=== PATIENT | male | born 1955 | race Caucasian/White ===

== ENCOUNTER 2019-01-31 08:54 | Emergency (ER) | payer BC, SELFPAY ==
[2019-01-31 09:26] VITALS: BP 105/75; PULSE 74; RESP 18; TEMP 36.8; O2SAT 99; BMI 31.1
--- NOTE | 2019-01-31 09:34 | PC.NURSE ---
pt has good pulses in right radial. middle finger is swollen. decreased ability to bend the finger.
--- NOTE | 2019-01-31 09:47 | DI.RAD.S_ITS ---
PROCEDURE: XR FINGER LT MIN 2V INDICATIONS: pain/swelling L middle finger TECHNIQUE: AP hand, 2 views of the third finger(s) acquired. COMPARISON: None. FINDINGS: Bones: No fractures or dislocations. No suspicious bony lesions. Soft tissues: No suspicious soft tissue calcifications. IMPRESSION: No acute fracture. No osseous lesion. If clinical suspicion and/or symptoms persist, further assessment with repeat plainfilms, or advanced imaging (e.g., CT, MRI, or bone scan) may be helpful for further assessment. Dictated by: Bibiana Simon M.D. on 01/31/2019 at 10:11 Approved by: Bibiana Simon M.D. on 01/31/2019 at 10:12
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
[2019-01-31 10:42] LABS: C-Reactive Protein Quant 0.6 mg/dL (<1.0); Uric Acid 5.9 mg/dL (3.5-8.5)
[2019-01-31 10:44] LABS: Erythrocyte Sedimentation Rate 5 MM/HR (0-15)
[2019-01-31 11:37] VITALS: BP 116/84; PULSE 76; RESP 18; TEMP 36.7; O2SAT 99
== END 2019-01-31 11:33 | disposition home or self-care (01) ==
PROVIDERS: Emergency Provider Emergency Medicine; PCP Family Medicine
DX: M79.89 Other specified soft tissue disorders (principal); W54.0XXA Bitten by dog, initial encounter
CPT/HCPCS: 36415; 73140; 84550; 85651; 86140; 99282; 99283

== ENCOUNTER 2019-02-06 12:44 | Emergency (ER) | payer BC, SELFPAY ==
[2019-02-06 12:45] VITALS: BP 131/76; PULSE 92; RESP 19; TEMP 36.3; O2SAT 98
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
--- NOTE | 2019-02-06 13:34 | PC.NURSE ---
swelling noted to middle finger on left hand.
== END 2019-02-06 13:39 | disposition home or self-care (01) ==
PROVIDERS: Emergency Provider Emergency Medicine; PCP Family Medicine
DX: M77.9 Enthesopathy, unspecified (principal)
CPT/HCPCS: 99283

== ENCOUNTER → 2019-04-29 11:43 | Outpatient (CLI) | payer BC, SELFPAY ==
[2019-04-29 12:12] LABS: Add Manual Diff / Slide Review NO; Basophils Absolute Auto 100 /uL (0-100); Basophils Percent Auto 0.9 % (0-2); Eosinophils Absolute Auto 300 /uL (0-450); Eosinophils Percent Auto 3.8 % (2-4); Hematocrit 42.7 % (41-53); Hemoglobin 14.6 g/dL (13.5-17.5); Lymphocytes Absolute Auto 2400 /uL (1100-4500); Lymphocytes Percent Auto 26.9 % (25-40); Mean Corpuscular HGB Conc 34.2 % (30-36); Mean Corpuscular Hemoglobin 32.6 PG (26-34); Mean Corpuscular Volume 95.2 fL (80-100); Monocytes Absolute Auto 700 /uL (0-900); Monocytes Percent Auto 7.7 % (3-14); Neutrophils Absolute Auto 5400 /uL (1500-7000); Neutrophils Percent Auto 60.7 % (50-75); Platelet Count 255 X10^3/uL (150-400); Red Blood Cell Count 4.48 X10^6/uL (4.5-5.9); Red Cell Distribution Width 13.2 % (11.6-14.8)
[2019-04-29 12:48] LABS: Alanine Aminotransferase 36 IU/L (21-72); Albumin 4.5 g/dL (3.5-5.0); Albumin Globulin Ratio 1.7 (1.0-2.8); Alkaline Phosphatase 121 U/L (38-126); Aspartate Aminotransferase 30 IU/L (17-59); BUN Creatinine Ratio 26.9 (6-22); Bilirubin Total 0.6 mg/dL (0.2-1.3); Blood Urea Nitrogen 35 mg/dL (9-20); Calcium 9.7 mg/dL (8.4-10.2); Carbon Dioxide 25 mmol/L (22-32); Chloride 101 mmol/L (98-107); Estimated Glomerular Filt Rate 55.4 mL/min (>60); Globulin 2.6 g/dL (1.7-4.1); Glucose 82 mg/dL (80-110); HEMOLYSIS < 15 (0-50); Potassium 4.8 mmol/L (3.4-5.1); Sodium 136 mmol/L (137-145); Total Protein 7.1 g/dL (6.3-8.2)
[2019-04-29 14:25] LABS: Creatinine Urine Random 126.4 mg/dL
[2019-04-29 14:30] LABS: Microalbumi Creatinin Ratio Ur 22.1 ug/mg CR (<30); Microalbumin Urine Random 2.8 mg/dL (0-1.6)
== END ==
PROVIDERS: PCP Family Medicine; Visit Provider Internal Medicine Hematology & Oncology
DX: Z86.718 Personal history of other venous thrombosis and embolism (principal); I10 Essential (primary) hypertension
CPT/HCPCS: 36415; 80053; 82043; 82570; 85025

== ENCOUNTER → 2019-04-30 09:12 | Oncology outpatient (ONC) | payer BC, SELFPAY ==
--- NOTE | 2019-04-15 13:44 | ONC.SCHED ---
[place] [facility] [place] to reschedule his apt. that is on April 30 which is a Friday. I'll send an email out to the team.
--- NOTE | 2019-04-29 16:53 | ONC.PN ---
PN -Subjective Interval history: Diagnosis: Recurrent DVT Interval history: The patient is a 64-year-old man who returns today for follow-up. He has a history of 3 episodes of previous thrombosis. The 1st occurred in 2013 and was treated with Lovenox followed by warfarin for about 6 months. In 2015, he had unprovoked recurrence. He was treated with Pradaxa. In 2017, he had a recurrence again while on anticoagulation and was switched to Eliquis. Since then, he has been doing well on the Eliquis. He has not had any bleeding complications. He denies any epistaxis or gingival bleeding. No blood in the urine or stool. He has not noted any unusual bruising. He denies any shortness of breath cough for chest pain. He has not had any pain or swelling in the legs. He has been diligent about taking the medication and denies missing doses. He denies any other changes in his health and is otherwise feeling well. Home Medications and Allergies Home Medications Medication Instructions Recorded Confirmed Type amlodipine 5 mg tablet 5 mg PO QDAY #90 tab 03/22/19 Rx apixaban 5 mg tablet 5 mg PO BID #180 tab 03/22/19 Rx atorvastatin 20 mg tablet 20 mg PO HS #90 tab 03/22/19 Rx hydrochlorothiazide 25 mg tablet 25 mg PO QDAY #90 tab 03/22/19 Rx lisinopril 40 mg tablet 40 mg PO QDAY #90 tab 03/22/19 Rx Allergies Allergy/AdvReac Type Severity Reaction Status Date / Time codeine [CODEINE] Allergy Severe PASSED OUT Unverified 03/22/19 09:25 oxycodone [OXYCODONE] Allergy Unknown Unverified 03/22/19 09:25 Exam - Constitutional positive no acute distress, positive average body habitus - Routine HEENT Exam Head: Present: normocephalic, atraumatic Eye: Present: EOMI, PERRL. Absent: conjunctival icterus, scleral injection ENT: Present: mucous membranes moist, oropharynx clear - Routine Neck Exam Present: supple. Absent: lymphadenopathy, thyromegaly - Routine Respiratory Exam Present: Clear to auscultation bilaterally. Absent: rales, wheezes - Routine Cardiovascular Exam Present: RRR, S1, S2. Absent: murmur - Routine Abdominal Exam Present: soft, normoactive bowel sounds. Absent: tenderness, organomegaly, mass - Routine Extremities Exam Absent: cyanosis, clubbing, edema - Routine Skin Exam Present: intact. Absent: petechiae, rash - Routine Neurological Exam Present: alert, oriented X3 - Routine Psychiatric Exam Present: normal affect, normal thought process Assessment and Plan (1) History of deep venous thrombosis Onset Date: 10/02/15 Current visit: No Status: Chronic 64-year-old man with a history of recurrent thrombosis despite anticoagulation. He is doing well on his current regimen with Eliquis and will continue. I think he should be treated indefinitely. I have not scheduled a follow-up appointment for him but would be happy to see him on an as needed basis if any new questions or problems arise.
== END ==
PROVIDERS: PCP Family Medicine; Visit Provider Internal Medicine Hematology & Oncology
DX: Z09 Encounter for follow-up examination after completed treatment for conditions other than malignant neoplasm (principal); Z86.718 Personal history of other venous thrombosis and embolism; Z79.01 Long term (current) use of anticoagulants
CPT/HCPCS: 36415; 80053; 82043; 82570; 85025; 99214

== ENCOUNTER → 2020-05-04 08:59 | Outpatient (CLI) | payer BC, SELFPAY ==
--- NOTE | 2020-05-04 | DI.RAD.S_ITS ---
PROCEDURE: XR T AND L SPINE 4 TO 5 VIEWS INDICATIONS: Scoliosis TECHNIQUE: 2 views acquired of the thoracolumbar spine. COMPARISON: [facility], , CHEST 2 VIEW, 02/16/2014, 9:35. FINDINGS: Bones: Mild anterior wedging noted within multiple lower thoracic vertebral bodies which appear similar to prior examination dated 02/16/14. Multilevel thoracolumbar disc degeneration redemonstrated, most notably in severe at L5-S1 level were there is grade 2 spondylolisthesis. Moderate dextrocurvature centered at the thoracolumbar level with maximal Hardy angle of 31?. Visualized inferior ribs appear intact. No suspicious bony lesions. Bones are osteopenic. Soft tissues: No suspicious soft tissue calcifications. IMPRESSION: 1. Moderate dextroscoliosis centered at the thoracolumbar level with maximal Hardy angle 31?. 2. Mild anterior wedging noted within multiple lower thoracic vertebral bodies appearing unchanged from prior chest radiograph dated 02/16/14. 3. Multilevel thoracolumbar spondylosis, most notably with severe disc degeneration at the L5-S1 level. Dictated by: Noe Workman [facility] Interpreted: Raya Casillas MD on 05/04/2020 at 10:04 Approved by: Raya Casillas MD, PhD on 05/04/2020 at 13:39
[2020-05-04 10:32] LABS: Add Manual Diff / Slide Review NO; Basophils Absolute Auto 0 /uL (0-100); Basophils Percent Auto 0.4 % (0-2); Eosinophils Absolute Auto 300 /uL (0-450); Eosinophils Percent Auto 5.3 % (2-4); Hematocrit 42.3 % (41-53); Hemoglobin 14.4 g/dL (13.5-17.5); Lymphocytes Absolute Auto 1800 /uL (1100-4500); Mean Corpuscular HGB Conc 34.1 % (30-36); Mean Corpuscular Hemoglobin 33.1 PG (26-34); Mean Corpuscular Volume 97.3 fL (80-100); Monocytes Absolute Auto 600 /uL (0-900); Monocytes Percent Auto 9.2 % (3-14); Neutrophils Absolute Auto 3700 /uL (1500-7000); Neutrophils Percent Auto 57.1 % (50-75); Platelet Count 242 X10^3/uL (150-400); Red Blood Cell Count 4.35 X10^6/uL (4.5-5.9); Red Cell Distribution Width 13.2 % (11.6-14.8); White Blood Cell Count 6.4 X10^3/uL (4.5-11.0)
[2020-05-04 10:38] LABS: Alanine Aminotransferase 29 IU/L (<50); Albumin 4.3 g/dL (3.5-5.0); Albumin Globulin Ratio 1.6 (1.0-2.8); Alkaline Phosphatase 85 U/L (38-126); Aspartate Aminotransferase 32 IU/L (17-59); BUN Creatinine Ratio 21.5 (6-22); Bilirubin Total 0.6 mg/dL (0.2-1.3); Blood Urea Nitrogen 26 mg/dL (9-20); Calcium 9.5 mg/dL (8.4-10.2); Carbon Dioxide 28 mmol/L (22-32); Chloride 103 mmol/L (98-107); Cholesterol 146 mg/dL (140-199); Globulin 2.7 g/dL (1.7-4.1); Glucose 89 mg/dL (80-110); HDL Cholesterol 47 mg/dL (40-60); HEMOLYSIS < 15 (0-50); LDL Cholesterol Calculated 77 mg/dL (<100); Potassium 5.1 mmol/L (3.4-5.1); Sodium 138 mmol/L (137-145); Triglycerides 112 mg/dL (35-150)
[2020-05-04 11:28] LABS: TSH w/ Reflex to FT4 1.42 uIU/mL (0.47-4.68)
[2020-05-05 06:36] LABS: PSA Ultrasensitive 0.858 ng/mL (0.000-4.000)
== END ==
PROVIDERS: PCP Internal Medicine; Referring Provider Internal Medicine; Visit Provider Internal Medicine
DX: Z12.5 Encounter for screening for malignant neoplasm of prostate (principal); E78.5 Hyperlipidemia, unspecified; I10 Essential (primary) hypertension; I82.401 Acute embolism and thrombosis of unspecified deep veins of right lower extremity; Z79.01 Long term (current) use of anticoagulants; M41.9 Scoliosis, unspecified
CPT/HCPCS: 36415; 72083; 80053; 80061; 84153; 84443; 85025

== ENCOUNTER 2020-05-16 16:20 | Emergency (ER) | payer OTHER, BC, SELFPAY ==
[2020-05-16 16:24] VITALS: BP 124/75; PULSE 88; RESP 20; TEMP 37.2; O2SAT 96; BMI 31.1
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
[2020-05-16 17:58] VITALS: BP 124/76; PULSE 65; O2SAT 99
== END 2020-05-16 18:06 | disposition home or self-care (01) ==
PROVIDERS: Emergency Provider Nurse Practitioner Family; PCP Internal Medicine
DX: S13.4XXA Sprain of ligaments of cervical spine, initial encounter (principal); M79.641 Pain in right hand; S60.511A Abrasion of right hand, initial encounter; V89.2XXA Person injured in unspecified motor-vehicle accident, traffic, initial encounter; Z79.01 Long term (current) use of anticoagulants
CPT/HCPCS: 70450; 71045; 72125; 73130; 99284

== ENCOUNTER → 2020-06-08 11:38 | Outpatient (CLI) | payer BC, SELFPAY ==
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
== END ==
PROVIDERS: PCP Internal Medicine; Referring Provider Internal Medicine; Visit Provider Internal Medicine
DX: S13.4XXA Sprain of ligaments of cervical spine, initial encounter (principal); I65.23 Occlusion and stenosis of bilateral carotid arteries; I65.03 Occlusion and stenosis of bilateral vertebral arteries; M43.12 Spondylolisthesis, cervical region; M47.812 Spondylosis without myelopathy or radiculopathy, cervical region; M48.02 Spinal stenosis, cervical region
CPT/HCPCS: 70548; 70551; 72141

== ENCOUNTER → 2021-01-25 07:33 | Outpatient (CLI) | payer BC, OTHER, SELFPAY ==
[2021-01-25] MEDS: COVID-19 VACC, Ad26(JANSSEN)/PF 0.5 ML IM (07:47)
== END ==
PROVIDERS: PCP Family Medicine; Visit Provider Internal Medicine
DX: Z23 Encounter for immunization (principal)
CPT/HCPCS: 0031A; 91303

== ENCOUNTER → 2021-02-13 08:09 | Outpatient (CLI) | payer BC, OTHER, SELFPAY ==
[2021-02-13 09:31] LABS: Alanine Aminotransferase 34 IU/L (<50); Albumin 4.2 g/dL (3.5-5.0); Albumin Globulin Ratio 1.8 (1.0-2.8); Alkaline Phosphatase 94 U/L (38-126); Aspartate Aminotransferase 34 IU/L (17-59); BUN Creatinine Ratio 22.8 (6-22); Bilirubin Total 0.4 mg/dL (0.2-1.3); Blood Urea Nitrogen 29 mg/dL (9-20); Calcium 9.3 mg/dL (8.4-10.2); Carbon Dioxide 28 mmol/L (22-32); Chloride 103 mmol/L (98-107); Cholesterol 156 mg/dL (140-199); Estimated Glomerular Filt Rate 56.6 mL/min (>60); Globulin 2.3 g/dL (1.7-4.1); Glucose 97 mg/dL (80-110); HDL Cholesterol 57 mg/dL (40-60); HEMOLYSIS < 15 (0-50); LDL Cholesterol Calculated 80 mg/dL (<100); Potassium 4.2 mmol/L (3.4-5.1); Sodium 138 mmol/L (137-145); Total Protein 6.5 g/dL (6.3-8.2); Triglycerides 96 mg/dL (35-150)
== END ==
PROVIDERS: PCP Family Medicine; Referring Provider Family Medicine; Visit Provider Family Medicine
DX: E78.2 Mixed hyperlipidemia (principal); I10 Essential (primary) hypertension
CPT/HCPCS: 36415; 80053; 80061

== ENCOUNTER → 2021-03-29 09:10 | Outpatient (CLI) | payer BC, OTHER, SELFPAY ==
[2021-03-29 09:45] LABS: COVID19 -Nasal RAPID Negative (Negative)
== END ==
PROVIDERS: PCP Family Medicine; Visit Provider Specialist
DX: Z20.822 Contact with and (suspected) exposure to COVID-19 (principal)
CPT/HCPCS: 87635; C9803

== ENCOUNTER → 2021-05-24 08:53 | Outpatient (CLI) | payer BC, OTHER, SELFPAY ==
[2021-05-24 10:45] LABS: COVID19 -Nasal RAPID Negative (Negative)
== END ==
PROVIDERS: PCP Family Medicine; Referring Provider Specialist; Visit Provider Specialist
DX: Z20.822 Contact with and (suspected) exposure to COVID-19 (principal)
CPT/HCPCS: 87635; C9803

== ENCOUNTER 2021-05-25 09:41 | Day surgery (SDC) | payer BC, OTHER, SELFPAY ==
--- NOTE | 2021-05-25 | PATH_ITS ---
[facility] Accession Number: [id number] . 01 Material submitted: . body - POLYP @50CM . 02 Diagnosis: Polyp at 50 cm: Portions of tubular adenoma x 3. Superficial portions of colorectal mucosa x 3 with hyperplastic mucosal features. Superficial portions of colorectal mucosa x 2 with no significant histomorphologic abnormality. MRV 05/30/2021 1055 Local . 02 Electronically signed: . Kenyetta Felipe MD, Pathologist NPI- [id number] . 01 Gross description: . POLYP @50CM: Received in formalin are multiple fragment(s) of marquez, soft tissue measuring 0.6 x 0.6 x 0.2 cm in aggregate submitted entirely in 1 cassette(s) /MADELINE 05/26/2021 0537 Local . 02 Pathologist provided ICD-10: Z12.11, K63.5 . 02 CPT . 211457 Performed at: 01 [facility] [address] [facility], [place], [place] [id number] MD Chad Zuñiga MD Phone: [phone] Performed at: 02 [facility] [address] [place], [place] [id number] MD Danyelle Mejia MD Phone: [phone]
[2021-05-25 10:37] VITALS: BMI 32.5
[2021-05-25 10:41] VITALS: BP 128/80; PULSE 81; RESP 12; TEMP 36.6; O2SAT 97
[2021-05-25] MEDS: LACTATED RINGERS 1,000 ML 200 ML IV (10:47)
--- NOTE | 2021-05-25 11:02 | PM.HP.1 ---
History of Present Illness History of Present Illness Date Patient Seen: 05/25/21 Time Patient Seen: 11:03 Chief complaint: SDC Narrative: Patient here for screening colonoscopy. Last exam was about 5 years ago. He had polyps removed at that time. Patient History Medical History Cephalgia Chicken pox Chronic back pain Erectile dysfunction Essential hypertension (10/02/15) Fractures Herpes zoster ophthalmicus of left eye Heterozygous factor V Leiden mutation (10/02/15) History of deep venous thrombosis (10/02/15) Measles Mixed hyperlipidemia (10/02/15) Mumps Renal insufficiency Surgical History Anesthesia Broken leg (~01/2000) No pertinent past surgical history Family & Social History Family History Father History of heart disease Mother Cancer Social History: household members spouse Tobacco & Substance use: Smoking Status Former smoker alcohol intake current alcohol intake frequency a few times a week Substance Use Type does not use Meds Home Medications and Allergies Home Medications Medication Instructions Recorded Confirmed Type aspirin 81 mg tablet,delayed 81 mg PO DAILY 01/22/21 05/25/21 History release tadalafil 20 mg tablet 20 mg PO DAILY tab 01/22/21 05/25/21 History sodium,potassium,mag sulfates 17.5 177 ml PO DAILY #354 ml 02/15/21 05/22/21 Rx gram-3.13 gram-1.6 gram oral soln apixaban 5 mg tablet (Eliquis) 5 mg PO BID #180 tab 05/09/21 05/25/21 Rx atorvastatin 20 mg tablet 20 mg PO BEDTIME #90 tab 05/23/21 05/25/21 Rx lisinopril 20 mg tablet 20 mg PO DAILY #30 tab 05/23/21 05/25/21 Rx amlodipine 5 mg tablet 5 mg PO DAILY 05/25/21 05/25/21 History hydrochlorothiazide 25 mg tablet 25 mg PO DAILY 05/25/21 05/25/21 History Allergies Allergy/AdvReac Type Severity Reaction Status Date / Time codeine [CODEINE] Allergy Severe PASSED OUT Verified 05/25/21 10:21 oxycodone [OXYCODONE] Allergy Intermediate n/v/d Verified 05/25/21 10:21 Review of Systems Review of Systems Narrative: Has a history of DVTs. Has factor 5 Leiden deficiency. Has hypertension and elevated cholesterol. Otherwise fairly healthy. He does have enlarged prostate. ROS: Yes All systems reviewed with the patient and are negative except as otherwise documented Exam Vital Signs (past 8 hours): - 05/25/21 10:41 Temperature 97.8 F Pulse Rate 81 Respiratory Rate 12 Blood Pressure 128/80 Pulse Oximetry 97 Oxygen Delivery Method Room Air Narrative Exam Narrative: Pleasant cooperative patient no apparent distress. Lungs are clear to auscultation. No rales or rhonchi. Heart regular rate and rhythm no murmur gallop. Abdomen is soft nontender without mass. No obvious hernias. Patient is alert and oriented x3. Assessment & Plan Assessment & Plan narrative: The patient for a screening colonoscopy. I have discussed the procedure with them. Risks of bleeding, perforation which would necessitate major operation, failure to find remove all lesions, the potential tattoo were all discussed. All questions were answered. They wished to proceed.
--- NOTE | 2021-05-25 11:04 | PM.PREOP ---
Pre-operative Note COVID-19 COVID-19 status: Negative Result date/Date tested (Pos, Neg/Pending): 05/24/21 Interval Note History & Physical reviewed/Exam performed by Physician: Yes Changes to H&P: No H&P completed within 30 days and has changed as indicated here:: Last Eliquis was Friday. ASA Class (for procedural sedation): III
[2021-05-25] MEDS: ONDANSETRON 4 MG/2 ML INJ IV (11:08)
[2021-05-25 11:28] VITALS: BP 114/80; PULSE 78; RESP 16; TEMP 36.8; O2SAT 96
--- NOTE | 2021-05-25 11:28 | PM.OP.ENDO ---
Operative Date/Time/Diagnoses Date of procedure: 05/25/21 Time of procedure: 11:28 Pre-op diagnosis: Screening for colon cancer. Personal history of polyps. Last exam 5 years ago. Post-op diagnosis: same Procedure & Clinicians Study performed: Colonoscopy with cold biopsy Same procedure as scheduled: Yes Indications: Screening Surgeon: Luis Perera Procedure Notes SCOAP/Timeout: Performed Procedure in detail: The patient was placed in the left lateral decubitus position and underwent IV sedation directed by the surgeon consisting of fentanyl and Versed. Digital exam was unremarkable. His prostate is flat.. The scope was inserted and advanced through the rectum into the sigmoid, descending, transverse, and ascending colon. Patient had diverticulosis throughout the colon.. The cecum was reached identified by the ileocecal valve and the appendiceal opening. There were diverticuli within the cecum as well. . The scope was gradually brought out. One possible Polyp was found at 50 cm from the anal verge. This was located between 2 diverticuli. It appeared to be completely removed with biopsy forceps. The scope ultimately was retroflexed in the rectum. The appearance was normal. The scope was removed and the patient tolerated the procedure well. The prep was good. Scope withdrawal time: 6 minutes(7-1/2 total) Sedation minutes: 17 Findings: diverticulosis (Throughout the colon) and polyp Post-procedure Recommendations: Colonscopy in 5 years (Due to presence/history of polyps.) and High fiber diet (Eat lots of fruit and vegetables) Follow up: as needed Disposition: PACU
[2021-05-25] MEDS: fentaNYL 250 MCG/5 ML INJ IV (11:31)
[2021-05-25] MEDS: MIDAZOLAM 5 MG/5 ML VIAL IV (11:31)
[2021-05-25 11:33] VITALS: BP 112/74; PULSE 74; RESP 17; O2SAT 95
[2021-05-25 11:38] VITALS: BP 114/70; PULSE 70; RESP 16; O2SAT 95
[2021-05-25 11:43] VITALS: BP 103/60; PULSE 74; RESP 14; TEMP 36.9; O2SAT 95
[2021-05-25 11:51] VITALS: BP 111/64; PULSE 76; RESP 16; TEMP 36.9; O2SAT 95
== END 2021-05-25 12:08 | disposition home or self-care (01) ==
PROVIDERS: PCP Family Medicine; Referring Provider Specialist; Visit Provider Specialist
PROC: 0DJD8ZZ Inspection of Lower Intestinal Tract, Via Natural or Artificial Opening Endoscopic (ICD-10-PCS; CPT 45378; principal; 2021-05-25 10:45)
DX: Z12.11 Encounter for screening for malignant neoplasm of colon (principal); Z86.010 Personal history of colon polyps; I10 Essential (primary) hypertension; E78.2 Mixed hyperlipidemia; D12.6 Benign neoplasm of colon, unspecified
CPT/HCPCS: 45380; 99152; J2250; J2405; J3010

== ENCOUNTER → 2021-08-24 17:31 | Outpatient (CLI) | payer BC, OTHER, SELFPAY ==
--- NOTE | 2021-08-24 17:32 | DI.MRI.S_ITS ---
PROCEDURE: MR CERVICAL SPINE WO CON INDICATIONS: Chronic Neck pain TECHNIQUE: Noncontrast sagittal T1 spin echo and T2 fast spin echo, sagittal STIR, foraminal oblique sagittal T2 fast spin echo, and axial gradient echo or T2 fast spin echo through the cervical spine. COMPARISON: [facility], MR, MR CERVICAL SPINE WO CON, 06/08/2020, 12:17. FINDINGS: Image quality: Artifact is present within multiple portions of the exam, limiting areas of fine detail evaluation. Alignment and Curvature: There is trace retrolisthesis C5 on C6, C6 on C7. Bone Marrow: Marrow demonstrates normal overall signal. Spinal Cord: Visualized spinal cord has normal size and signal. No cerebellar tonsillar herniation. Paraspinous Soft Tissues: No paravertebral masses. Prevertebral soft tissues are normal in thickness. Discs: Moderate to severe desiccation is present throughout the cervical spine most severe at C5-6 and C6-7. C2-C3: Mild disc bulge without spinal stenosis. Mild left foraminal narrowing is unchanged. Uncovertebral hypertrophy is present. C3-C4: Mild disc bulge without spinal stenosis. Moderate to severe left and minimal right foraminal narrowing demonstrating interval progression most notably on the left. Uncovertebral hypertrophy is present. C4-C5: Mild disc bulge with mild spinal stenosis. Severe bilateral foraminal narrowing, left greater than right with uncovertebral hypertrophy. No interval change. C5-C6: Mild disc bulge with mild spinal stenosis. Palz-sg-fkdmsvkr right and moderate to severe left foraminal narrowing with uncovertebral hypertrophy. Slight interval progression. C6-C7: Mild disc bulge with minimal canal narrowing. Severe left and moderate right foraminal narrowing slightly progressive. Uncovertebral hypertrophy is present. C7-T1: No disc bulge or spinal stenosis. Foramina are not well visualized secondary to artifact. There is likely at least mild to moderate left and possibly mild right foraminal narrowing. IMPRESSION: 1. Multilevel degenerative changes with areas of progression as noted above. 2. Multilevel foraminal narrowing most severe at C4-5 and C6-7 secondary to uncovertebral arthropathy. Dictated by: Livia Elizondo M.D. on 08/27/2021 at 9:20 Approved by: Livia Elizondo M.D. on 08/27/2021 at 9:49
== END ==
PROVIDERS: PCP Family Medicine; Referring Provider Family Medicine; Visit Provider Family Medicine
DX: M48.02 Spinal stenosis, cervical region; M54.50 Low back pain, unspecified; M47.812 Spondylosis without myelopathy or radiculopathy, cervical region; M54.2 Cervicalgia; M54.9 Dorsalgia, unspecified; G89.29 Other chronic pain
CPT/HCPCS: 72141

== ENCOUNTER → 2021-08-30 11:48 | Outpatient (CLI) | payer BC, OTHER, SELFPAY | PROVIDERS: PCP Family Medicine; Referring Provider Family Medicine; Visit Provider Family Medicine | DX: M54.9 Dorsalgia, unspecified (principal); G89.29 Other chronic pain; M47.812 Spondylosis without myelopathy or radiculopathy, cervical region; M54.50 Low back pain, unspecified | CPT/HCPCS: 95886; 95911 ==

== ENCOUNTER → 2021-10-15 09:43 | Outpatient (CLI) | payer BC, OTHER, SELFPAY ==
--- NOTE | 2021-10-15 09:45 | DI.RAD.S_ITS ---
PROCEDURE: XR LUMBAR SPINE 2-3V INDICATIONS: Progressive lower back pain, right-sided radiculopathy TECHNIQUE: 3 views of the lumbar spine were acquired. COMPARISON: None. FINDINGS: Bones: 5 [id number] vertebrae are present. Moderate rightward curvature of the upper lumbar spine is present. Loss of normal lumbar lordosis. Grade 1 anterolisthesis of L5 on S1. Bilateral L5-S1 pars interarticularis defects. Multilevel disc space narrowing and endplate osteophyte formation. Facet hypertrophy throughout the mid and lower lumbar spine. No vertebral body compression fractures. No suspicious bony lesions. Soft tissues: Overlying bowel gas pattern is normal. No suspicious soft tissue calcifications. IMPRESSION: 1. Multilevel degenerative disc and facet disease. 2. Grade 1 isthmic spondylolisthesis at L5-S1. 3. No acute fracture. No osseous lesion. If symptoms and/or clinical suspicion for pathology persist, further assessment with repeat, or advanced imaging (e.g., CT, MRI, or bone scan) may be helpful for further assessment. Dictated by: Bibiana Simon M.D. on 10/15/2021 at 11:22 Approved by: Bibiana Simon M.D. on 10/15/2021 at 11:23
== END ==
PROVIDERS: PCP Family Medicine; Referring Provider Family Medicine; Visit Provider Family Medicine
DX: M51.16 Intervertebral disc disorders with radiculopathy, lumbar region (principal); M47.26 Other spondylosis with radiculopathy, lumbar region; M43.17 Spondylolisthesis, lumbosacral region
CPT/HCPCS: 72100

== ENCOUNTER 2022-05-11 16:12 | Emergency (ER) | payer BC, OTHER, SELFPAY ==
[2022-05-11 16:24] VITALS: BP 118/79; PULSE 91; RESP 16; TEMP 36.6; O2SAT 94; BMI 32.5
--- NOTE | 2022-05-11 16:30 | ED.GENADULT ---
HPI - General Adult General Chief complaint: Eye Problems Stated complaint: shingles Time Seen by Provider: 05/11/22 16:23 Source: patient Mode of arrival: Ambulatory Limitations: no limitations History of Present Illness HPI narrative: Patient is a 67-year-old male who is here for evaluation of what he states is a concern for shingles in his right eye. He states that several years ago he was diagnosed with shingles in this emergency department. He followed up with Optometry who put him on ?eyedrops ?he said that there was some scarring around his eye. He has not had any issues since that time. He has never had any surgeries on his eyes before. He does wear corrective lenses. He states that approximately 10 days ago he started to have discomfort on the inside of his right eye that he states feels very similar to when he was diagnosed with shingles. He was not evaluated for this until today. Approximately 7 days ago he was diagnosed with COVID. He has been vaccinated against COVID. He denies any rashes. No problems breathing. No discomfort with his nose. No hearing changes. He does report some discharge from his right eye. Has some irritation but no foreign body sensation. Related Data Home Medications Medication Instructions Recorded Confirmed aspirin 81 mg tablet,delayed 81 mg PO DAILY 01/22/21 10/15/21 release tadalafil 20 mg tablet 20 mg PO DAILY 01/22/21 10/15/21 Previous Rx's Medication Instructions Recorded sodium,potassium,mag sulfates 17.5 177 ml PO DAILY 2 doses #354 mL 02/15/21 gram-3.13 gram-1.6 gram oral soln hydrocodone 5 mg-acetaminophen 325 1 tab PO Q8H PRN pain #20 tabs 10/24/21 mg tablet apixaban 5 mg tablet (Eliquis) 5 mg PO BID #180 tabs 11/13/21 lisinopril 20 mg tablet See Rx Instructions .Route 11/19/21 .COMPLEX #90 tabs amlodipine 5 mg tablet 5 mg PO DAILY #90 tabs 04/22/22 hydrochlorothiazide 25 mg tablet 25 mg PO DAILY #90 tabs 04/22/22 atorvastatin 20 mg tablet 20 mg PO BEDTIME #90 tabs 04/30/22 amoxicillin 875 mg-potassium 1 tab PO Q12H 10 days #20 tabs 05/11/22 clavulanate 125 mg tablet Allergies Allergy/AdvReac Type Severity Reaction Status Date / Time codeine [CODEINE] Allergy Severe PASSED OUT Verified 05/11/22 16:24 oxycodone [OXYCODONE] Allergy Intermediate n/v/d Verified 05/11/22 16:24 Review of Systems Constitutional Constitutional: Denies chills, Denies fever(s) and Denies headache(s) Eyes Eyes: Denies blurry vision, Denies diplopia, Reports eye discharge, Reports irritation and Denies loss of vision ENT Ears, Nose, Mouth, and Throat: Reports system reviewed and no additional complaints, except as documented, Reports as per HPI and Denies headache(s) Respiratory Respiratory: Reports system reviewed and no additional complaints, except as documented Integumentary/Breasts Skin/Breast: Reports system reviewed and no additional complaints, except as documented Neurologic Neurologic: Denies headache(s) and Denies loss of vision Hematologic/Lymphatic On Anticoagulants: No Patient History Medical History Cephalgia Cervical spondylosis Chicken pox Chronic back pain Erectile dysfunction Essential hypertension (10/02/15) Fractures Herpes zoster ophthalmicus of left eye Heterozygous factor V Leiden mutation (10/02/15) History of deep venous thrombosis (10/02/15) Measles Mixed hyperlipidemia (10/02/15) Mumps Renal insufficiency Surgical History Anesthesia Broken leg (~01/2000) No pertinent past surgical history Family History Father History of heart disease Mother Cancer Social History household members: spouse Smoking Status: Former smoker Tobacco: How many years used: 10 quit status: has quit before alcohol intake: current substance use type: does not use Smoking Status: Former smoker alcohol intake frequency: a few times a week Substance Use Type: does not use Exam Initial Vital Signs Initial Vital Signs: Vital Signs Temperature 97.8 F 05/11/22 16:24 Pulse Rate 91 H 05/11/22 16:24 Respiratory Rate 16 05/11/22 16:24 Blood Pressure 118/79 05/11/22 16:24 Pulse Oximetry 94 05/11/22 16:24 Oxygen Delivery Method 05/11/22 16:24 Const General: cooperative, comfortable, well developed and No ill appearing HENCA Head: normal to inspection and normocephalic Ears: hearing grossly normal bilaterally, TM's normal bilaterally and EAC's normal Nose: external nose normal, nares normal, septum normal and No nasal discharge Mouth: oral mucosae normal and moist mucous membranes Eyes Other: Left eye is unremarkable. Right eye does have redness and a small pustule on the upper nasal eyelid with redness that extends down to the lower eyelid medial aspect as well. There are no vesicles noted. Will floor seen the does appear to be some scarring at the 5 and 7 o'clock position of the cornea that does not extend into the visual axis not cross the limbus. But no ulceration. No dendrites. No uptake consistent with abrasion. No foreign body noted. Resp Effort & Inspection: normal respiratory effort Skin Other: No rashes, no vesicles Neuro General: patient alert, patient awake and moves all extremities Extrem General: normal to inspection and capillary refill normal Course Orders Ordered: Discontinued Medications Amoxicillin/Clavulanate Potassium (Amoxicillin/Clav 875/125 Mg) 1 tab PO NOW ONE Stop: 05/11/22 17:22 Last Admin: 05/11/22 17:34 Dose: 1 tab Documented By: BENITO Fluorescein Sodium (Fluorescein 1 Mg Strip) 1 mg EYE-BOTH NOW ONE Stop: 05/11/22 16:31 Last Admin: 05/11/22 16:44 Dose: 1 mg Documented By: MILAGRO Proparacaine HCl (Proparacaine 0.5% Ophth Amanda) 1 drops EYE-RIGHT NOW ONE Stop: 05/11/22 16:31 Last Admin: 05/11/22 16:44 Dose: 1 drop Documented By: NR Vital Signs Vital signs: Vital Signs - 8 hr 05/11/22 16:24 05/11/22 17:38 Temperature 97.8 F Pulse Rate 91 H 83 Respiratory Rate 16 16 Blood Pressure 118/79 119/85 Pulse Oximetry 94 96 Oxygen Delivery Method Room Air Room Air Medical Decision Making MDM Narrative Medical decision making narrative: The patient does not have definitive evidence that there is a zoster infection. There are no vesicles. His visual acuity is noted. He does have redness on the upper and medial aspect of the right eye. This would be more consistent with either a horeolum or dacryocystitis. Low suspicion for ocular zoster disc based on his presentation today. Plan based start him on antibiotics. He was given 1st dose here in the emergency department prescriptions sent to pharmacy of his choice. Will have him contact Ophthalmology on Friday for a follow-up. He was given return precautions. He expressed understanding and agreement. Discharge Plan Departure Patient Disposition: Home Clinical Impression: Dacrocystitis Activity Restrictions/Additional Instructions: Take the antibiotics as directed. They were electronically transmitted to [facility] On Friday morning contact the Ophthalmology Department here at the hospital at the number provided below. You can also use a warm washcloth over the area. If your symptoms worsen or you develop any new symptoms please return to the emergency department for evaluation. Prescriptions: New amoxicillin-pot clavulanate 875-125 mg tablet 1 tab PO Q12H 10 Days Qty: 20 0RF No Action sodium,potassium,mag sulfates 17.5-3.13-1.6 gram recon soln 177 ml PO DAILY Qty: 354 0RF Rx Instructions: Please take medication per [facility] written instructions. hydrocodone-acetaminophen 5-325 mg tablet 1 tab PO Q8H PRN (Reason: pain) Qty: 20 0RF Eliquis 5 mg tablet 5 mg PO BID Qty: 180 2RF Rx Instructions: Appointment and labs due for further refills. Thank you! LV 01/22/21, next appt 05/22 lisinopril 20 mg tablet See Rx Instructions .ROUTE .COMPLEX Qty: 90 3RF Dose Instruction: TAKE 1 TABLET DAILY Rx Instructions: TAKE 1 TABLET DAILY hydrochlorothiazide 25 mg tablet 25 mg PO DAILY Qty: 90 0RF Rx Instructions: PT NEEDS APPT W/PROVIDER FOR FURTHER REFILLS amlodipine 5 mg tablet 5 mg PO DAILY Qty: 90 0RF Rx Instructions: PT NEEDS APPT W/PROVIDER FOR FURTHER REFILLS atorvastatin 20 mg tablet 20 mg PO BEDTIME Qty: 90 1RF Rx Instructions: APPT DUE W/PCP COME 09/2022. PLEASE CALL TO SCHEDULE FUTURE APPT. THANK YOU 04/30/22. tadalafil 20 mg tablet 20 mg PO DAILY aspirin 81 mg tablet,delayed release (DR/EC) 81 mg PO DAILY Referrals: Adilson Peraza MD [Physician] - Boone,Adonis T, DO [Primary Care Provider] - Visit Report Forms: Patient Portal/API
[2022-05-11] MEDS: PROPARACAINE 0.5% OPHTH SOL 1 DROPS EYE-RIGHT (16:44)
[2022-05-11] MEDS: FLUORESCEIN 1 MG STRIP EYE-BOTH (16:44)
[2022-05-11] MEDS: AMOXICILLIN/CLAV 875/125 MG 1 TAB PO (17:34)
[2022-05-11 17:38] VITALS: BP 119/85; PULSE 83; RESP 16; O2SAT 96
== END 2022-05-11 17:38 | disposition home or self-care (01) ==
PROVIDERS: Emergency Provider Emergency Medicine; PCP Family Medicine
DX: H04.309 Unspecified dacryocystitis of unspecified lacrimal passage (principal)
CPT/HCPCS: 99283

== ENCOUNTER → 2022-05-13 16:44 | Outpatient (CLI) | payer BC, OTHER, SELFPAY | PROVIDERS: PCP Family Medicine; Referring Provider Ophthalmology; Visit Provider Ophthalmology | DX: H00.031 Abscess of right upper eyelid (principal) | CPT/HCPCS: 86695; 86696; 87070; 87205; 87255 ==

== ENCOUNTER → 2022-07-17 08:12 | Outpatient (CLI) | payer BC, OTHER, SELFPAY ==
--- NOTE | 2022-07-17 | DI.MRI.S_ITS ---
PROCEDURE: MR LUMBAR SPINE WO CON INDICATIONS: Spinal stenosis, lumbar region without neurogenic claudicati TECHNIQUE: Noncontrast sagittal T1 spin echo and T2 fast echo, sagittal STIR, and T2 fast spin echo through the lumbar spine. In cases with scoliosis, additional coronal T2 fast spin echo may be performed. COMPARISON: [facility], CT, ABDOMEN/PELVIS WITH CONTRAST, 02/07/2017, 10:26. [facility], CR, XR LUMBAR SPINE 2-3V, 10/15/2021, 9:38. FINDINGS: Image quality: This examination is limited by involuntary motion artifact. Alignment and Curvature: There is moderate dextroconvex lumbar scoliosis. Grade 2 L5-S1 anterolisthesis is seen, with associated bilateral pars defects. Bone Marrow: Marrow is of normal overall signal. No acute vertebral body compression fractures. Spinal Cord: Conus medullaris terminates at the L1 level. Visualized cord demonstrates normal signal and size. Paraspinous Soft Tissues: No paravertebral masses. T12-L1: Moderate loss of disc height is seen. Loss of disc signal is seen. Bridging endplate osteophytes are seen. Mild generalized disc bulge is seen. No significant neural foraminal or central canal narrowing can be seen. L1-L2: Ipqe-pn-[id number] loss of disc height and disc signal can be seen. Mild to moderate disc bulge is seen at this level. Bridging endplate osteophytes are seen on the left, as on series 2, image 6. Mild facet joint hypertrophy is seen. There is moderate to severe left-sided neural foraminal narrowing, with a degree of compression upon the exiting left L1 nerve root. Mild to moderate right-sided neural foraminal narrowing is seen. Moderate central canal narrowing is seen. L2-L3: Moderate loss of disc height is seen. Loss of disc signal is seen. Mild to moderate disc bulge is seen. Bridging endplate osteophytes are seen on the left, as on series 2, image 6. Mild to moderate facet hypertrophy is seen. Moderate bilateral neural foraminal narrowing can be seen, right worse than left. Moderate central canal narrowing is seen. L3-L4: The disc height is well-preserved. Loss of disc signal is seen at this level. Mild generalized disc bulge is seen. Moderate facet joint hypertrophy is seen. There is moderate to severe right-sided neural foraminal narrowing, with a degree of compression upon the exiting right L3 nerve root. Moderate left-sided neural foraminal narrowing is seen. Moderate central canal narrowing is seen. L4-L5: The disc height is well-preserved. Loss of disc signal is seen at this level. Mild generalized disc bulge is seen. Prominent facet hypertrophy is seen at this level. There is moderate to severe right-sided neural foraminal narrowing, with a degree of compression upon the exiting right L4 nerve root. Moderate left-sided neural narrowing can be seen. Moderate central canal narrowing is seen. L5-S1: At least moderate loss of disc height and disc signal can be seen. Mild to moderate disc bulge is seen. There is moderate to severe bilateral neural foraminal narrowing seen, with an associated a degree of compression seen upon the exiting nerve roots. Moderate central canal narrowing is seen. IMPRESSION: Multiple levels of lumbar spine degenerative change are seen, which are worst at the L5-S1 level. At L5-S1, there is grade 2 anterolisthesis, with bilateral L5 pars defects. Moderate to severe bilateral neural foraminal narrowing is also seen at L5-S1. Moderate dextroconvex scoliosis is seen. Dictated by: Andrez Ron M.D. on 07/17/2022 at 10:35 Approved by: Andrez Ron M.D. on 07/17/2022 at 10:40
== END ==
PROVIDERS: PCP Family Medicine; Referring Provider Orthopaedic Surgery Orthopaedic Surgery of the Spine; Visit Provider Orthopaedic Surgery Orthopaedic Surgery of the Spine
DX: M48.061 Spinal stenosis, lumbar region without neurogenic claudication (principal); M43.16 Spondylolisthesis, lumbar region
CPT/HCPCS: 72148

== ENCOUNTER → 2022-08-28 10:03 | Outpatient (CLI) | payer BC, OTHER, SELFPAY ==
--- NOTE | 2022-08-28 | DI.CT.S_ITS ---
PROCEDURE: CT LUMBAR SPINE WO CON INDICATIONS: Spinal stenosis, lumbar region without neurogenic claudicati TECHNIQUE: Noncontrast 3 mm thick sections acquired from the T12 level to the sacrum. Sagittal and coronal reformats were constructed. For radiation dose reduction, the following was used: automated exposure control. COMPARISON: [facility], MR, MR LUMBAR SPINE WO CON, 07/17/2022, 8:28. [facility], CR, XR LUMBAR SPINE 2-3V, 10/15/2021, 9:38. [facility], CT, ABDOMEN/PELVIS WITH CONTRAST, 02/07/2017, 10:26. FINDINGS: Image quality: Excellent. Bones: No acute vertebral body compression fractures. No suspicious lytic or blastic bony lesions. Grade 2 L5-S1 anterolisthesis is seen, with associated bilateral pars defects. Moderate dextroconvex lumbar scoliosis is seen. Moderate lower thoracic spine degenerative changes are seen. T12-L1: Moderate loss of disc height is seen. Bridging endplate osteophytes are seen. No significant neural foraminal or central canal narrowing can be seen. L1-L2: Moderate loss of disc height is seen on the left side. Bridging endplate osteophytes are seen, particularly on the left, as on series 5, image 40. Mild facet joint hypertrophy is seen. There is moderate to severe left-sided and moderate right-sided neural foraminal narrowing. Mild to moderate central canal narrowing is seen. L2-L3: Dsmn-[id number] loss of disc height is seen. Moderate disc bulge is seen, which is eccentric to the left. Bridging endplate osteophytes are seen on the left, as on series 5, image 41. Mild to moderate facet hypertrophy is seen. There is moderate left-sided and at least moderate right-sided neural foraminal narrowing. Moderate central canal narrowing is seen. L3-L4: The disc height is relatively well preserved. Mild to moderate disc bulge is seen. Moderate facet joint hypertrophy is seen. There is at least moderate left-sided and moderate to severe right-sided neural foraminal narrowing. At least moderate central canal narrowing is seen. L4-L5: The disc height is well preserved. Mild to moderate disc bulge is seen. There is at least moderate left-sided and moderate to severe right-sided neural foraminal narrowing. Moderate central canal narrowing is seen. L5-S1: At least moderate loss of disc height is seen. Endplate irregularity and sclerosis can be seen. Vacuum disc phenomenon is seen at this level. Moderate to severe bilateral neural foraminal narrowing can be seen. Moderate central canal narrowing is seen. Soft tissues: No retroperitoneal masses or hematomas. Visualized aorta is normal in caliber. A lap band can be seen. Colonic diverticulosis is seen, without findings of active diverticulitis. IMPRESSION: Multiple levels of lumbar spine degenerative change are seen, which are similar to the prior MRI. At L5-S1 is grade 2 anterolisthesis seen, with associated bilateral pars defects. Moderate dextroconvex lumbar scoliosis. Incidental note is made of: Lap band Diverticulosis, without active diverticulitis Dictated by: Andrez Ron M.D. on 08/28/2022 at 14:38 Approved by: Andrez Ron M.D. on 08/28/2022 at 14:44
== END ==
PROVIDERS: PCP Family Medicine; Referring Provider Orthopaedic Surgery Orthopaedic Surgery of the Spine; Visit Provider Orthopaedic Surgery Orthopaedic Surgery of the Spine
DX: M48.061 Spinal stenosis, lumbar region without neurogenic claudication (principal); M47.816 Spondylosis without myelopathy or radiculopathy, lumbar region; M43.17 Spondylolisthesis, lumbosacral region; M41.86 Other forms of scoliosis, lumbar region
CPT/HCPCS: 72131

== ENCOUNTER → 2022-09-16 10:07 | Outpatient (CLI) | payer BC, OTHER, SELFPAY ==
[2022-09-16 12:19] LABS: Add Manual Diff / Slide Review NO; Basophils Absolute Auto 0 /uL (0-100); Basophils Percent Auto 0.3 % (0-2); Eosinophils Absolute Auto 300 /uL (0-450); Eosinophils Percent Auto 3.1 % (2-4); Hematocrit 45.3 % (41-53); Hemoglobin 15.1 g/dL (13.5-17.5); Lymphocytes Absolute Auto 1700 /uL (1100-4500); Lymphocytes Percent Auto 18.8 % (25-40); Mean Corpuscular HGB Conc 33.4 % (30-36); Mean Corpuscular Hemoglobin 32.5 PG (26-34); Mean Corpuscular Volume 97.5 fL (80-100); Monocytes Absolute Auto 900 /uL (0-900); Monocytes Percent Auto 9.3 % (3-14); Neutrophils Absolute Auto 6300 /uL (1500-7000); Neutrophils Percent Auto 68.5 % (50-75); Platelet Count 234 X10^3/uL (150-400); Red Blood Cell Count 4.65 X10^6/uL (4.5-5.9); Red Cell Distribution Width 13.8 % (11.6-14.8); White Blood Cell Count 9.3 X10^3/uL (4.5-11.0)
[2022-09-16 12:31] LABS: Hemoglobin A1C% w Est Avg Glu 5.7 % (4.0-6.0)
[2022-09-16 13:14] LABS: Blood Urea Nitrogen 34 mg/dL (9-20); Calcium 9.1 mg/dL (8.4-10.2); Carbon Dioxide 28 mmol/L (22-32); Chloride 102 mmol/L (98-107); Estimated Glomerular Filt Rate 59 mL/min (>60); Glucose 130 mg/dL (80-110); HEMOLYSIS < 15 (0-50); Potassium 4.7 mmol/L (3.4-5.1); Sodium 140 mmol/L (137-145)
== END ==
PROVIDERS: PCP Family Medicine; Referring Provider Orthopaedic Surgery Orthopaedic Surgery of the Spine; Visit Provider Orthopaedic Surgery Orthopaedic Surgery of the Spine
DX: Z01.818 Encounter for other preprocedural examination (principal); Z01.812 Encounter for preprocedural laboratory examination; R73.9 Hyperglycemia, unspecified
CPT/HCPCS: 36415; 80048; 83036; 85025; 93005

== ENCOUNTER 2022-10-21 10:42 | Inpatient (IN) | payer BC, OTHER, MEDICARE, SELFPAY ==
[2022-10-15 12:54] VITALS: BMI 32.5
[2022-10-21] VITALS (15 sets, daily range): BP systolic 123–151; BP diastolic 80–95; PULSE 75–94; RESP 10–21; TEMP 35.5–36.5; O2SAT 91–98; BMI 32.5
--- NOTE | 2022-10-21 | DI.RAD.S_ITS ---
PROCEDURE: XR LUMBAR SPINE 2-3V INDICATIONS: L4-5 L5-S1 TLIF TECHNIQUE: 3 intraoperative fluoroscopic views of the lumbar spine were acquired. COMPARISON: [facility], , XR LUMBAR SPINE 2-3V, 10/15/2021, 9:38. FINDINGS: Intraoperative fluoroscopic images of lower lumbar spine shows posterior fusion and intervertebral disc placement at L4-5 and L5-S1 levels. Lumbar spine alignment is anatomic. IMPRESSION: Fluoro guidance was provided intraoperatively for posterior fusion of lower lumbar spine. Dictated by: Juan R Singh M.D. on 10/22/2022 at 10:37 Approved by: Juan R Singh M.D. on 10/22/2022 at 10:40
[2022-10-21] MEDS: LACTATED RINGERS 1,000 ML 84 ML IV ×4 (11:06→17:48)
[2022-10-21 11:34] LABS: COVID19 -Nasal RAPID Negative (Negative)
--- NOTE | 2022-10-21 12:28 | PM.PREOP ---
Pre-operative Note COVID-19 COVID-19 status: Negative Result date/Date tested (Pos, Neg/Pending): 10/20/22 Criteria for continued procedure: Expected advancement of disease process, Possibility delay results in more complex future surgery or treatment, Increased loss of function, Continuing or worsening of significant or severe pain, Deterioration of the patient's condition or overall health and Delay expected to result in less-positive ultimate med/surg outcome Interval Note History & Physical reviewed/Exam performed by Physician: Yes Changes to H&P: No
[2022-10-21] MEDS: CEFAZOLIN 2 GM/100 ML PREMIX 100 ML IV ×2 (13:31→20:58)
[2022-10-21] MEDS: BUPIVACAINE 0.25% (PF) 30 ML, EPINEPHrine 0.3 MG INJ (14:05)
--- NOTE | 2022-10-21 14:08 | SUR.OPER ---
Prone on spine table, head in foam head support, padded chest and pelvic supports, gel pad at knees and between heels, lower legs supported by pillows; nipples, genitalia and toes free of pressure, arms secured on foam padded arm boards at <90 degrees abduction. Tape over blanket at thigh secured to table.
--- NOTE | 2022-10-21 18:18 | P.OP_ITS ---
Operative Date/Time/Diagnoses Date of procedure: 10/21/22 Time of procedure: 12:45 Pre-op diagnosis: 1. L5-S1 spondylolisthesis 2. L4-5, L5-S1 spinal stenosis with neurogenic claudication Post-op diagnosis: same Procedure & Clinicians Procedure: 1. L4-5, L5-S1 Postero-lateral and posterior interbody fusion 2. L4-5, L5-S1 interbody cage placement. 3. L4-5, L5-S1 decompressive laminectomy with bilateral facetecomies 4. L4-5, L5-S1 Posterior segmental instrumentation 5. Fulda of bone marrow from iliac crest 6. Utilization of microsurgical technique and operating microscope 7. Utilization of robotic assisted navigation Same procedure as scheduled: Yes Indications: Patient has been having chronic back pain and worsening lumbar radiculopathy and symptoms of neurogenic claudication. Patient failed multiple conservative management with worsening pain weakness and numbness in his lower extremity. Patient has been having difficulty performing activity of daily living. After discussing risks benefits of treatment options, patient elected proceed with surgery. Surgeon: Connie Goins [place] Observer: Dolores Jordan Click Yes if Unassisted: No Anesthesia Type: General Operative Notes Closure Type: primary Specimen(s): none sent Prosthetic devices, grafts, tissues, transplants, or devices: Globus CREO MIS screws, Rise cages Estimated Blood Loss (mL): 100 Blood products transfused: none Procedure in detail: Patient was seen in the preoperative area. Risks and benefits of the surgery was discussed with the patient. Informed consent was obtained from the patient and placed in the chart. Surgical site was marked. Patient was taken to the operative room. General anesthesia was administered. Prophylactic antibiotic was given to the patient less than 30 min before the incision was made. Patient was placed into a prone position on the Lenard table. Patient's back was then prepped and draped in the sterile fashion. Time-out was performed at this time. After patient was prepped and draped, patient's PSIS was palpated and marked bilaterally. Small 1 cm incision was made over the PSIS for placement of the reference probes. Two trocar was placed into the PSIS 1 on each side. The reference probe was attached to the trocar of the reference apparatus. At this time the C-arm imaging was used to confirm AP and lateral of L4-L5, L5- S1 vertebrae and merged the C-arm imaging using the [employer] robotic navigation system with the CT of the lumbar spine. After successful merging was completed and confirmed, skin marker was used to dipesh out the skin incision using the [employer] robotic arm. Bilateral incision was made at this time. Pre templated trajectory was used and guided using the [employer] robotic navigation system for bilateral L4, L5, S1 pedicle screw placement. This was done by using the robotic arm to guide the high-speed bur to make a cortical entry point. Next a drill was placed also using the robotic arm and guided using the navigation system drilling partially through bilateral L4, L5 and S1 pedicles. Next L4, L5, S1 pedicle screws it was pre templated and measured was placed onto the power substitute bus driver and inserted into the pedicles bilaterally. Right L5 pedicle screw was left un-inserted on purpose due to its small size and proximity to the surrounding nerve roots. After all 5 screws were placed C-arm imaging was taken of both AP and lateral to confirm the placement. Excellent placement of the screws were confirmed and a matched precisely with the pre planned screw placement using the navigation system. MARs retractor was inserted using [employer] guidence. Globus MARS retractors was placed inside the incision and docked onto the L4 and L5 lamina. Using microsurgical technique and operating microscope, a L4, L5 laminectomy and L4-5, L5-S1 facetectomy was performed using a Kerrison rongeur. Patient was found have severe lateral recess and neural foramen stenosis which was fully decompressed after the laminectomy facetectomy. More than 75% of the facets were removed during the process of decompression rendering L4-5, L5-S1 level grossly unstable and required a fusion procedure at the same time. The disc space at L4-5, L5-S1 was identified, and a total diskectomy was performed at L4- 5, L5-S1 level. The endplates were decorticated using a rasp and shaver. The total diskectomy and decortication was performed at L4-5, L5-S1 level in order to to accomplish a L4-5, L5-S1 fusion. The local bone from the laminectomy and facetectomy was saved for local bone grafting. After the total diskectomy and decortication was completed, Trifecta bone graft material was combined with local bone that was harvested earlier. At this time, a separate skin is incision was made over the iliac crest. A Jamshidi needle was inserted into the iliac crest through a separate skin incision. 5 cc of bone marrow aspiration was obtained through the separate skin incision using a Jamshidi needle from the iliac crest. The bone marrow aspiration was combined with local bone and the Trifecta bone grafting material. The bone grafting material was placed into the L4-5, L5-S1 interbody space along with a expandable cage. The cage was expanded to its maximum height using the torque limiting screwdriver. The disc preparation as well as the cage insertion were also performed under navigation guidance. After the cage was placed, AP and lateral C-arm imaging was taken to confirm placement of the cage and excellent position was confirmed. Globus MARS retractor was inserted and docked onto the L4-5, L5-S1 posterolateral gutter on the right side. Using the power drill, posterior- lateral decortication was performed at L4-5, L5-S1 level until bleeding cortical bone was identified. The remaining bone grafting material was placed into the L4-5, L5-S1 posterior lateral gutter he order to accomplish posterolateral fusion at the L4-5, L5-S1 level. At this time the tulips were attached to the L4, L5, S1 pedicle screw shanks. After measuring the length of the rods, they were inserted into the tulips of the pedicle screws and locked in place using locking caps and torque limiting screwdriver bilaterally. Total 6 caps and 2 titanium rods was used in order to complete the posterior instrumentation construct. After all the hardware was placed, and confirmed with AP and lateral C-arm imaging, the wound was then irrigated with sterile normal saline and packed with Ray-Lisa gauze for 3 min to accomplish hemostasis. After the gauze was removed the deep fascia was closed with #1 Vicryl suture. The subcutaneous layer was closed with 2-0 Vicryl. The skin was closed with skin ezequiel. Patient tolerated the procedure well. There were no complications. Neuro monitoring system was used to monitor patient's neurologic status throughout entire procedure. There was no disturbance of the neural monitoring signals throughout the case. Complications: none Post-operative Condition: stable Disposition: PACU Plan for aftercare: Admit to inpatient hospital
[2022-10-21] MEDS: hydrOXYzine 50 MG/ML INJ IM (18:38)
[2022-10-21] MEDS: OXYCODONE/ACETAMINOPHEN 5/325 TABLET 1 TAB PO (18:39)
[2022-10-21] MEDS: SODIUM CHLORIDE 0.9% 1,000 ML 100 ML IV (19:29)
--- NOTE | 2022-10-21 19:32 | PC.NURSE ---
admit/post op pt to ac from pacu at 1900. VSS. 2L o2. pt rating pain 3-4/10. sleeping off and on through assessment. surgical dressing to back CDI. denies any numbness/tingling and able to move feet independently. SCDs to BLEs. stevens patent draining clear yellow urine. pt is complaining of discomfort to R eye. per LINE INSTALLER Magaly, eye was rinsed with saline prior to transfer to AC. warm washcloth provided to pt's eye by this RN for further comfort. Pt denies any visual change man it just hurts.
[2022-10-21] MEDS: HYDROCODONE/ACET 5/325 TABLET 1 TAB PO (20:58)
[2022-10-21] MEDS: SENNOSIDES 8.6 MG TABLET 17.2 MG PO (20:58)
[2022-10-21] MEDS: ATORVASTATIN 20 MG TABLET PO (20:58)
[2022-10-21] MEDS: DOCUSATE 100 MG CAPSULE PO (20:59)
[2022-10-22] VITALS (7 sets, daily range): BP systolic 112–132; BP diastolic 72–87; PULSE 82–98; RESP 16–20; TEMP 35.7–37.2; O2SAT 91–98
[2022-10-22] MEDS: OXYCODONE IR 5 MG TABLET 10 MG PO ×5 (01:19→20:46)
[2022-10-22] MEDS: ACETAMINOPHEN 325 MG TABLET 650 MG PO (04:37)
[2022-10-22] MEDS: CEFAZOLIN 2 GM/100 ML PREMIX 100 ML IV (05:03)
--- NOTE | 2022-10-22 07:54 | PM.PNPO.1 ---
Subjective Subjective Date Patient Seen: 10/22/22 Time Patient Seen: 07:54 Interval history: Patient is complaining of moderate to severe low back pain this morning, well controlled with current medications. He is currently on 2 L of O2 and satting at approximately 85. He notes he does not use oxygen at home and no history of lung issues. He is not worked with physical therapy or occupational therapy yet. He is complaining of bilateral thigh numbness/tingling, which she attributes to lying in bed. Exam Vital Signs (past 8 hours): - 10/22/22 01:59 10/22/22 02:54 10/22/22 05:13 Temperature 96.5 F L 96.3 F L Pulse Rate 83 87 Respiratory Rate 17 20 Blood Pressure 129/78 121/77 Pulse Oximetry 98 98 95 Oxygen Flow Rate 3 3 2 Fraction of Inspired Oxygen 40 SaO2/FiO2 Ratio 237 Oxygen Delivery Method Nasal Cannula Oxygen Flow Rate 2 Narrative Exam Narrative: 59-year-old male, resting comfortably in bed, no acute distress. Bilateral lower extremity: Motor functions grossly intact, sensation is slightly decreased on medial and lateral malleoli right compared to left, bilateral calves are soft and nontender to palpation. Objective Labs Labs: Laboratory Results - last 24 hr 10/21/22 11:05 SARS-CoV-2 (PCR) Negative [facility] Medical History Cephalgia Cervical spondylosis Chicken pox Chronic back pain COVID-19 virus infection (04/29/22) Erectile dysfunction Essential hypertension (10/02/15) Fractures Herpes zoster ophthalmicus of left eye Heterozygous factor V Leiden mutation (10/02/15) History of deep venous thrombosis (10/02/15) History of Mohs micrographic surgery for skin cancer HTN (hypertension) Measles Mixed hyperlipidemia (10/02/15) Mumps Renal insufficiency SCC (squamous cell carcinoma) (10/15/22) Surgical History Anesthesia History of bunionectomy of left great toe History of bunionectomy of right great toe History of surgery (~01/1999) Hx of colonoscopy No pertinent past surgical history Family History Father History of heart disease Mother Cancer Social History household members: spouse Smoking Status: Former smoker Tobacco: How many years used: 10 quit status: has quit before alcohol intake: current substance use type: does not use Assessment & Plan Post-op Postoperative Procedures: Procedures Operation Date: 10/21/22 12:15 Actual Procedure Side Surgeon p L4-5, L5-S1 TLIF w. posterior instrumentation -Robot Not Applicable Connie Goins MD Postoperative day: 1 Postoperative status narrative: -stable status post L4-5, L5-S1 TLIF Postoperative plan narrative: -mobilize with PT/OT. Weightbearing as tolerated with front wheel walker versus a cane. Limit bending, lifting, twisting x6 weeks. -continue with multimodal pain management -discontinue urinary catheter once mobile -continue to monitor O2. It is possible he may need to go home with O2. Encouraged incentive spirometer. -H&H ordered this morning -disposition: Home, likely tomorrow with his for assistance. Quality VTE Deep Vein Thrombosis/Pulmonary Embolism Present on Admission: No
[2022-10-22 08:09] LABS: Hemoglobin 13.2 g/dL (13.5-17.5)
--- NOTE | 2022-10-22 09:15 | PT.IIE ---
Current Diagnoses Other idiopathic scoliosis, thoracolumbar region (10/21/22) Spondylolisthesis, lumbar region (10/21/22) Spinal stenosis, lumbar region with neurogenic claudication (10/21/22) Surgery Performed Operation Date: 10/21/22 12:15 Actual Procedures p L4-5, L5-S1 TLIF w. posterior instrumentation -Robot(Not Applicable) - Connie Goins MD Surgical History (Last Reviewed 10/22/22 @ 07:56 by Cherry Carpio PA-C) Anesthesia History of bunionectomy of left great toe History of bunionectomy of right great toe History of surgery (~01/1999) Hx of colonoscopy No pertinent past surgical history Medical History (Last Reviewed 10/22/22 @ 07:56 by Cherry Carpio PA-C) Cephalgia Cervical spondylosis Chicken pox Chronic back pain COVID-19 virus infection (04/29/22) Erectile dysfunction Essential hypertension (10/02/15) Fractures Herpes zoster ophthalmicus of left eye Heterozygous factor V Leiden mutation (10/02/15) History of deep venous thrombosis (10/02/15) History of Mohs micrographic surgery for skin cancer HTN (hypertension) Measles Mixed hyperlipidemia (10/02/15) Mumps Renal insufficiency SCC (squamous cell carcinoma) (10/15/22) Physical Therapy Inpatient Evaluation/Re-Eval M1 PT/OT-IP Prior Functional Status Start: 10/22/22 11:54 Freq: NEEDED Status: Active Protocol: Document 10/22/22 09:15 AB (Rec: 10/22/22 12:03 AB [email or web address]) Medical Review Prior Functional Status Medical History Reviewed Yes Communication able to make needs known Mobility and Gait pt stated that he is independent with all mobilities and ambulation without AD Social History Household Members spouse Living Arrangements House Number of Floors (Floors) One Floor Number of Stairs To Enter/Railing? no steps to enter Home Environment Standard Height Toilet,Walk in Shower Home Equipment Front Wheel Walker,Shower Seat with Backrest,Hand Held Shower M2 PT-IP Current Condition Start: 10/22/22 11:54 Freq: NEEDED Status: Active Protocol: Document 10/22/22 09:15 AB (Rec: 10/22/22 12:03 AB [email or web address]) Physical Therapy Current Condition Current Condition Evaluation Date 10/22/22 Treatment Diagnosis s/p L4-5, L5S1 TLIF; difficulty in walking Onset Date 10/21/22 M3 PT-IP Subjective Start: 10/22/22 11:54 Freq: NEEDED Status: Active Protocol: Document 10/22/22 09:15 AB (Rec: 10/22/22 12:03 AB [email or web address]) Subjective Physical Therapy Visit Type Type Initial Evaluation Visit Start Time 09:15 Visit Stop Time 09:55 Total Visit Minutes 40 Number of SEMICONDUCTOR ENGINEER Visits 0 Physical Therapy Visit Comments Patient Comments agreeable to do PT Therapy Pain Assessment Pain When Pain Assessed At Rest Pain Present Pain Present Pain Reported Location lower back Intensity 4 Scale Used Numeric (0 - 10) Pain Management Techniques Distraction,Modification of Treatment,Re-positioning, Timing of Activity with Medications M4 PT-IP Mobility and Gait Start: 10/22/22 11:54 Freq: NEEDED Status: Active Protocol: Document 10/22/22 09:15 AB (Rec: 10/22/22 12:03 AB [email or web address]) PT-Bed Mobility Assessment Rolling Type of Rolling Log Rolling Level of Assist Contact Guard Assistance Supine to Sit Supine to Sit Contact Guard Assistance PT-Transfer Assessment Sit to and From Stand Sit to and from Stand Moderate Assistance,1 Person Assistance,Use of Upper Extremities Equipment Transfer Assistive Device Gait Belt,Front Wheeled Walker Orthotic/Prosthetic Devices or Brace: No Transfers Transfer Destination Chair Transfer Technique ambulated Transfer Ability Level of Assist Moderate Assistance,1 Person Assistance,Use of Upper Extremities Comments Mobility Comments educated pt regarding back precautions and log roll bed mobility. pt completed log roll supine to sit CGA and max cues for techniques. pt able to sit on EOB SBA. completed sit to stand mod A and cues and ambulated in room ~ 10 ft using FWW mod A and cues. pt agreed to sit up on chair. positioned on the chair. call light and table placed within reach. Gait Assessment Gait Gait Assistance Required: Moderate Assistance Distance (Feet) 10 Able to Maintain Weight Bearing Status Yes During Gait Assistive Devices Assistive Device Gait Belt,Front Wheeled Walker Orthotic/Prosthetic Devices or Brace: No Gait Deviations General Gait Pattern Antalgic,Decreased Stride Length,Decreased Feet Clearance Factors Limiting Gait Function Factors Limiting Gait Function Decreased Activity Tolerance, Decreased Strength,Limited Range of Motion,Pain,Poor Balance,Poor Safety Awareness PT-Balance Assessment Sitting Balance and Reactions Static Sitting Balance Ability Good Dynamic Sitting Balance Ability Good Standing Balance and Reactions Static Standing Balance Ability Fair Dynamic Standing Balance Ability Poor Device Used FWW M5 PT-IP Objective Assessments Start: 10/22/22 11:54 Freq: NEEDED Status: Active Protocol: Document 10/22/22 09:15 AB (Rec: 10/22/22 12:03 AB [email or web address]) Orientation Orientation/Cognition Level of Alertness Alert Orientation Name,Place,Situation Language Function Ability No Deficits Noted Safety Awareness Decreased Safety Awareness Gross Range of Motion Lower Extremity ROM Assessment Within Functional Limits Strength Lower Extremity Strength Assessment Bilaterally Impaired Hip L: 3+/5 R: 3-/5 Knee 3+/5 Coordination Assessment Gross Coordination Gross Coordination WNL Sensation Assessment Sensation Gross Sensation WNL Muscle Tone Muscle Tone WNL Yes M6 PT-IP Treatment Start: 10/22/22 11:54 Freq: NEEDED Status: Active Protocol: Document 10/22/22 09:15 AB (Rec: 10/22/22 12:03 AB [email or web address]) Physical Therapy Treatment Education Education Provided Precautions,Weight Bearing Status,Post-Op Packet,Safety M7 PT-IP Assessment and Plan Start: 10/22/22 11:54 Freq: NEEDED Status: Active Protocol: Document 10/22/22 09:15 AB (Rec: 10/22/22 12:03 AB [email or web address]) PT Summary Assessment and Plan Potential Rehabilitation Potential Fair Status of Condition at Evaluation Evolving Summary Impairments Pain,ROM,Strength,Balance, Coordination,Sensation,Tone, Cognition,Bed Mobility, Transfers,Gait,Activity Tolerance Assessment Summary pt requiring mod A and cues with mobility and unable to tolerate much activity with c/ o LBP. pt plans to go home and spouse to assist him. will continue to assess progress. will conduct caregiver training when appropriate. Goals Bed Mobility Goal Standby Assistance Transfer Goal Standby Assistance,Front Wheeled Walker Gait Goal Standby Assistance,Front Wheel Walker Gait Distance 150 Days to Meet Goals 5 Frequency of Treatment Frequency Of Treatment Twice a Day Treatment Plan Physical Therapy Treatment Plan Bed Mobility Training,Transfer Training,Gait Training, Therapeutic Exercise,Balance Retraining,Post Op Education, Discharge Planning,Hot or Cold Pack,Neuromuscular Re-ed, Coordination Retraining,Manual Therapy Precautions Lumbar Precautions Log Roll,No Twisting,Limit Bending,Lifting Restriction of 10 lbs,Gait Belt above Incisional Area Recommendations To Nursing Amount of Assist Needed 1 Person Assist Discharge Recommendations PT Discharge Recommendations Home with / Assist Available,Home Health Transportation Needs at Discharge Private Vehicle,Wheelchair/ Cabulance
[2022-10-22] MEDS: DOCUSATE 100 MG CAPSULE PO ×2 (09:17→20:45)
[2022-10-22] MEDS: AMLODIPINE 5 MG TABLET PO (09:19)
[2022-10-22] MEDS: lisinopriL 20 MG TABLET PO (09:19)
[2022-10-22] MEDS: hydroCHLOROthiazide 25 MG TABLET PO (09:19)
--- NOTE | 2022-10-22 14:00 | PT.IPTN ---
Current Diagnoses Other idiopathic scoliosis, thoracolumbar region (10/21/22) Spondylolisthesis, lumbar region (10/21/22) Spinal stenosis, lumbar region with neurogenic claudication (10/21/22) Surgery Performed Operation Date: 10/21/22 12:15 Actual Procedures p L4-5, L5-S1 TLIF w. posterior instrumentation -Robot(Not Applicable) - Connie Goins MD Physical Therapy Treatment Note M2 PT-IP Current Condition Start: 10/22/22 11:54 Freq: NEEDED Status: Active Protocol: Document 10/22/22 14:10 TS (Rec: 10/22/22 16:03 TS [id number]) Physical Therapy Current Condition Current Condition Evaluation Date 10/22/22 Treatment Diagnosis s/p L4-5, L5S1 TLIF; difficulty in walking Onset Date 10/21/22 M3 PT-IP Subjective Start: 10/22/22 11:54 Freq: NEEDED Status: Active Protocol: Document 10/22/22 14:10 TS (Rec: 10/22/22 16:03 TS [id number]) Subjective Physical Therapy Visit Type Type Treatment Note Visit Start Time 13:40 Visit Stop Time 14:00 Total Visit Minutes 20 Notes SPTA Stephan lead treatment supervised by CHRYSTAL Palmer. Vitals: Supine BP: 123/69, 79HR, Sao2 91% RA Sitting BP: 107/68, 110 HR, 91 % Sao2, 91% RA After Mobilization: BP 128/70, 92% Sao2 Number of TOP EXECUTIVE Visits 1 Physical Therapy Visit Comments Patient Comments Pt agreeable to PT session, would like to get up out of bed. Patient Goals plans to go home with to assist him, wants to meet with therapy for training tomorrow if can. M4 PT-IP Mobility and Gait Start: 10/22/22 11:54 Freq: NEEDED Status: Active Protocol: Document 10/22/22 14:10 TS (Rec: 10/22/22 16:03 TS [id number]) PT-Bed Mobility Assessment Rolling Type of Rolling Log Rolling Level of Assist Contact Guard Assistance Supine to Sit Supine to Sit Standby Assistance Scooting Scooting to Edge of Bed Standby Assistance PT-Transfer Assessment Sit to and From Stand Sit to and from Stand Contact Guard Assistance Equipment Transfer Assistive Device Gait Belt,Front Wheeled Walker Orthotic/Prosthetic Devices or Brace: No Transfers Transfer Destination Chair Transfer Technique ambulated Transfer Ability Level of Assist Contact Guard Assistance Comments Mobility Comments Pt found resting in bed and agreeable to PT session. Pt recalled 3/3 spinal precautions. Pt required cues for log roll of handplacement on rails, feet placement and rotation of spine with LEs CGA . Pt required cues for pushing with LUE into bed and to come up on elbow for full uprighting of trunk SBA, labored. Once in sitting pt c/ o dizziness, subsided quickly. Pt performed sit to stand x1 CGA with FWW, stood before therapist was ready. Performed marches x8 in FWW, no signs of buckling and pt reported felt good to move LEs. Pt ambulated x30ft with a staggered step gait, some swaying, pt reported feeling a little wobbly. Pt ambulated back to bedside chair, CGA for stand to sit, demonstrated good carryover of sequencing from previous session. He was SOB sitting in chair and required cues for pursed lip breathing, improved o2 from high 80's to 92%. Spoke with pt to have a caregiver training session with spouse, pt's will be in around 9: 30AM tomorrow. Pt was left in bedside chair, with tray and call light nearby, nursing in room for dressing change of surgical wound. Gait Assessment Gait Gait Assistance Required: Contact Guard Assist Distance (Feet) 30 Able to Maintain Weight Bearing Status Yes During Gait Assistive Devices Assistive Device Gait Belt,Front Wheeled Walker Orthotic/Prosthetic Devices or Brace: No Gait Deviations General Gait Pattern Antalgic,Decreased Stride Length Factors Limiting Gait Function Factors Limiting Gait Function Decreased Activity Tolerance, Decreased Strength,Limited Range of Motion,Pain,Poor Balance,Poor Safety Awareness Comments Gait Comments See mobility comments. PT-Balance Assessment Sitting Balance and Reactions Static Sitting Balance Ability Good Dynamic Sitting Balance Ability Fair Standing Balance and Reactions Static Standing Balance Ability Fair Dynamic Standing Balance Ability Poor Device Used FWW M5 PT-IP Objective Assessments Start: 10/22/22 11:54 Freq: NEEDED Status: Active Protocol: Document 10/22/22 09:15 AB (Rec: 10/22/22 12:03 AB [id number]) Orientation Orientation/Cognition Level of Alertness Alert Orientation Name,Place,Situation Language Function Ability No Deficits Noted Safety Awareness Decreased Safety Awareness Gross Range of Motion Lower Extremity ROM Assessment Within Functional Limits Strength Lower Extremity Strength Assessment Bilaterally Impaired Hip L: 3+/5 R: 3-/5 Knee 3+/5 Coordination Assessment Gross Coordination Gross Coordination WNL Sensation Assessment Sensation Gross Sensation WNL Muscle Tone Muscle Tone WNL Yes M6 PT-IP Treatment Start: 10/22/22 11:54 Freq: NEEDED Status: Active Protocol: Document 10/22/22 14:10 TS (Rec: 10/22/22 16:03 TS [id number]) Physical Therapy Treatment Education Education Provided Precautions,Safety M7 PT-IP Assessment and Plan Start: 10/22/22 11:54 Freq: NEEDED Status: Active Protocol: Document 10/22/22 14:10 TS (Rec: 10/22/22 16:03 TS [id number]) PT Summary Assessment and Plan Potential Rehabilitation Potential Good Status of Condition at Evaluation Evolving Summary Impairments Pain,ROM,Strength,Balance, Coordination,Sensation,Tone, Cognition,Bed Mobility, Transfers,Gait,Activity Tolerance Progress Towards Goals Progressing Toward Goals,Slow Progress due to Activity Tolerance Assessment Summary Pt demonstrates ability to recall 3/3 spinal precautions. He is CGA for logroll, SBA for supine to sit but labored, CGA for sit to stand x1 and ambualted 30ft CGA with some swaying. Pt did complain of dizziness sitting on EOB and demonstrated some SOB after ambulation, improved with cueing for pursed lip breathing. Pt's spouse will be arriving tomorrow around 9: 30AM and will have caregiver training at that time. PT is currently home with 24/7 and HHPT to improve functional gait and transfers. Goals Bed Mobility Goal Standby Assistance Transfer Goal Standby Assistance,Front Wheeled Walker Gait Goal Standby Assistance,Front Wheel Walker Gait Distance 150 Days to Meet Goals 5 Frequency of Treatment Frequency Of Treatment Twice a Day Treatment Plan Physical Therapy Treatment Plan Bed Mobility Training,Transfer Training,Gait Training, Therapeutic Exercise,Balance Retraining,Post Op Education, Discharge Planning,Hot or Cold Pack,Neuromuscular Re-ed, Coordination Retraining,Manual Therapy Precautions Lumbar Precautions Log Roll,No Twisting,Limit Bending,Lifting Restriction of 10 lbs,Gait Belt above Incisional Area Recommendations To Nursing Amount of Assist Needed 1 Person Assist Discharge Recommendations PT Discharge Recommendations Home with 24/7 Assist Available,Home Health Transportation Needs at Discharge Private Vehicle,Wheelchair/ Cabulance
--- NOTE | 2022-10-22 14:05 | OT.IP.EVAL ---
Current Diagnoses Other idiopathic scoliosis, thoracolumbar region (10/21/22) Spondylolisthesis, lumbar region (10/21/22) Spinal stenosis, lumbar region with neurogenic claudication (10/21/22) Surgery Performed Operation Date: 10/21/22 12:15 Actual Procedures p L4-5, L5-S1 TLIF w. posterior instrumentation -Robot(Not Applicable) - Connie Goins MD Past Medical History (Last Reviewed 10/22/22 @ 07:56 by Cherry Carpio PA-C) Cephalgia Cervical spondylosis Chicken pox Chronic back pain COVID-19 virus infection (04/29/22) Erectile dysfunction Essential hypertension (10/02/15) Fractures Herpes zoster ophthalmicus of left eye Heterozygous factor V Leiden mutation (10/02/15) History of deep venous thrombosis (10/02/15) History of Mohs micrographic surgery for skin cancer HTN (hypertension) Measles Mixed hyperlipidemia (10/02/15) Mumps Renal insufficiency SCC (squamous cell carcinoma) (10/15/22) Surgical History (Last Reviewed 10/22/22 @ 07:56 by Cherry Carpio PA-C) Anesthesia History of bunionectomy of left great toe History of bunionectomy of right great toe History of surgery (~01/1999) Hx of colonoscopy No pertinent past surgical history Occupational Therapy Inpatient Evaluation/Re-Eval M1 PT/OT-IP Prior Functional Status Start: 10/22/22 11:54 Freq: NEEDED Status: Active Protocol: Document 10/22/22 14:05 [facility] (Rec: 10/22/22 15:03 [facility] [id number]) Medical Review Prior Functional Status Medical History Reviewed Yes Communication able to make needs known Mobility and Gait pt stated that he is independent with all mobilities and ambulation without AD Activities of Daily Living and IADL's Pt states able to do ADls and IADl needs but having pain. Social History Household Members spouse Living Arrangements House Number of Floors (Floors) One Floor Number of Stairs To Enter/Railing? no steps to enter Home Environment Standard Height Toilet,Walk in Shower Home Equipment Front Wheel Walker,Shower Seat with Backrest,Hand Held Shower M2 OT-IP Current Condition Start: 10/22/22 14:52 Freq: Status: Active Protocol: Document 10/22/22 14:05 [facility] (Rec: 10/22/22 15:03 [facility] [id number]) Occupational Therapy Current Condition Current Condition Evaluation Date 10/22/22 Treatment Diagnosis S/p L4-5, L5-S1 TLIF Diagnosis Onset Date 10/21/22 M3 OT- IP Subjective and Pain Start: 10/22/22 14:52 Freq: Status: Active Protocol: Document 10/22/22 14:05 [facility] (Rec: 10/22/22 15:03 [facility] [id number]) OT- Subjective Occupational Therapy Visit Type Type Initial Evaluation Visit Start Time 14:05 Visit Stop Time 14:30 Total Visit Minutes 25 Occupational Therapy Visit Comments Patient Comments Pt agreed to get up but not wanting to shower at this time . Patient/Caregiver Goals To go home. OT Pain Assessment Pain When Pain Assessed During Mobility Pain Present Pain Present Pain Reported Location lower back Intensity 5 Scale Used Numeric (0 - 10) M4 OT- IP ADL's Start: 10/22/22 14:52 Freq: Status: Active Protocol: Document 10/22/22 14:05 [facility] (Rec: 10/22/22 15:03 [facility] [id number]) OT ADL-Grooming General Evaluation Grooming Ability Independent Areas Needing Assistance Retrieving/Set-up of Grooming Items Comments OT Grooming Comments Able to do while standing with the FWW in front of the sink. OT ADL-Oral Care General Eval Oral Care Ability Independent Comments Oral Care Comments Pt needing initial vc to spit into a cup to best follow his back precautions for oral care needs. OT ADL-Dressing General Eval Lower Body Dressing Ability Maximum Assistance Comments OT Dressing Comments Pt states to look into getting a christian science healer and that his to assist him at home. OT ADL-Toileting Comments OT Toileting Comments Pt unable to appropriately reach to wipe at this time and suggested pt to have assist or look into getting a toilet paper aid. In addition to use wet wipes can be also helpful. Suggested pt use a urinal at night initially or have his get up to assist him as needed. OT ADL-Bathing Comments OT Bathing Comments Pt wanting to just shower at home. M5 OT- IP IADL's Start: 10/22/22 14:52 Freq: Status: Active Protocol: Document 10/22/22 14:05 [facility] (Rec: 10/22/22 15:03 [facility] [id number]) OT-Instrumental Activities of Daily Living Home Safety Awareness Awareness of Need for Assistance at Home Good Awareness Ability to Problem Solve Emergency Able to Problem Solve Situations M6 OT- IP Functional Cognition Start: 10/22/22 14:52 Freq: Status: Active Protocol: Document 10/22/22 14:05 [facility] (Rec: 10/22/22 15:03 [facility] [id number]) Cognitive Factors Limiting Selfcare Function Cognitive Ability Level of Alertness Alert Patient Orientation Name,Age,Birthday,Month,Date, Year,Day of Week,Place, Situation Attention Span Ability Capable of Focused Attention, Capable of Sustained Attention Ability to Follow Commands Able to Follow Multi-Step Commands Memory Description No Deficits Noted Cognitive Comments Cognitive Assessment Comments Today on OT eval pt able to recall his back precautions and incorporate them well during mobility and ADL needs. OT- Vision and Hearing OT- Hearing Assessment OT- Hearing Assessment WFL OT- Vision Assessment Visual Acuity Glasses For Reading M7 OT- IP Mobility and Balance Start: 10/22/22 14:52 Freq: Status: Active Protocol: Document 10/22/22 14:05 [facility] (Rec: 10/22/22 15:03 [facility] [id number]) OT-Transfer Assessment Sit to and From Stand Sit to and from Stand Contact Guard Assistance Transfers Transfer Ability Standby Assistance Technique Transfer Destination Chair Devices Transfer Assistive Devices Gait Belt,Front Wheeled Walker Comments Mobility Comments Pt able to come to stand with CGA and walk to the sink and back with SBA and good safety for his back precautions. OT- Balance Assessment Sitting Balance and Reactions Static Sitting Balance Ability Good Dynamic Sitting Balance Ability Fair Standing Balance and Reactions Static Standing Balance Ability Good Dynamic Standing Balance Ability Fair M8 OT- IP Objective Assessments Start: 10/22/22 14:52 Freq: Status: Active Protocol: Document 10/22/22 14:05 [facility] (Rec: 10/22/22 15:03 [facility] [id number]) OT-Muscle Tone Assessment Muscle Tone WNL Yes M9 OT- IP Assessment and Plan Start: 10/22/22 14:52 Freq: Status: Active Protocol: Document 10/22/22 14:05 [facility] (Rec: 10/22/22 15:03 [facility] [id number]) OT Summary Assessment and Plan Potential Rehabilitation Potential Excellent Analytic Complexity at Evaluation Low Summary OT Impairments Pain,Balance,Functional Mobility,Dressing,Toileting, Bathing,Toilet Transfers, Shower Transfers Progress Towards Goals Progressing Toward Goals Assessment Summary Pt low complexity and and doing well with his back precautions for ADl and mobility needs. Pt off on O2 and on RA and was 95%. Pt looking to go home tomorrow with his supportive . Goals Grooming Goal Independent Dressing Goal Minimal Assistance Toileting Goal Minimal Assistance Bathing Goal Minimal Assistance Toilet Transfer Goal Independent Shower Transfer Goal Independent Days to Meet Goals 3 Frequency of Treatment Frequency Of Treatment Once a Day Treatment Plan OT Treatment Plan ADL Training,Functional Mobility,Patient/Family Education,Discharge Planning Discharge Recommendations OT Discharge Recommendations Home with Assistance Transportation Needs at Discharge Private Vehicle
[2022-10-22] MEDS: SENNOSIDES 8.6 MG TABLET 17.2 MG PO (20:45)
[2022-10-22] MEDS: hydrOXYzine pamoate 25 MG CAPSULE PO (20:46)
[2022-10-22] MEDS: ATORVASTATIN 20 MG TABLET PO (20:46)
[2022-10-23] VITALS: BP 118/64; PULSE 101; RESP 19; TEMP 37.2; O2SAT 89
[2022-10-23 01:58] VITALS: PULSE 88; RESP 15; O2SAT 91
[2022-10-23] MEDS: OXYCODONE IR 5 MG TABLET 10 MG PO (03:51)
[2022-10-23 04:00] VITALS: BP 110/75; PULSE 91; RESP 19; TEMP 36.7; O2SAT 94
[2022-10-23 08:00] VITALS: BP 98/71; PULSE 98; RESP 22; TEMP 36.3; O2SAT 92
[2022-10-23] MEDS: DOCUSATE 100 MG CAPSULE PO (08:54)
--- NOTE | 2022-10-23 08:54 | DI.RAD.S_ITS ---
PROCEDURE: XR CHEST 1V INDICATIONS: Acute respiratory failure s/p TLIF TECHNIQUE: One view of the chest was acquired. COMPARISON: [facility], CT, CT LUMBAR SPINE WO CON, 08/28/2022, 10:12. [facility], CR, XR LUMBAR SPINE 2-3V, 10/15/2021, 9:38. [facility], CR, XR CHEST 1V, 05/16/2020, 16:26. FINDINGS: Asymmetric elevation of the left hemidiaphragm has increased when compared with the 05/16/2020 prior. The right lung is normally expanded. No acute airspace opacity, pleural effusion, or pneumothorax. IMPRESSION: Worsened asymmetric elevation of the left hemidiaphragm since 05/16/2020 exam. Dictated by: John Luciano M.D. on 10/23/2022 at 10:56 Approved by: John Luciano M.D. on 10/23/2022 at 10:58
--- NOTE | 2022-10-23 08:54 | P.DS_ITS ---
History of Present Illness History of Present Illness Date Patient Seen: 10/23/22 Time Patient Seen: 08:55 Chief complaint: Low back pain s/p TLIF Narrative: Patient is complaining of moderate low back pain this morning. He worked with physical therapy yesterday and did well. The biggest concern is he appears to be in acute respiratory failure status post his TLIF. His pulse ox was 89 on room air and 94 on 1.5 L of nasal cannula oxygen. The patient denies any shortness of breath or chest pain. He does not use oxygen at home. He is feeling well and would like to be discharged home today. Discharge Providers Provider Date of admission: 10/21/22 10:42 Discharge Date: 10/23/22 Primary care physician: Adonis Boone DO Consults: 10/21/22 19:05 Consult to Occupational Therapy Evaluate & Treat Comment: Physician Instructions: Evaluate and treat Consult to Physical Therapy Evaluate & Treat Comment: Physician Instructions: Evaluate and Treat Discharge provider: Cherry Carpio PA-C Summary Hospital Course Discharge Diagnosis: 1. L5-S1 spondylolisthesis 2. L4-5, L5-S1 spinal stenosis with neurogenic claudication 3. Acute respiratory failure with hypoxia Hospital Course: Operative Date/Time/Diagnoses Date of procedure: 10/21/22 Time of procedure: 12:45 Procedure & Clinicians Procedure: 1. L4-5, L5-S1 Postero-lateral and posterior interbody fusion 2. L4-5, L5-S1 interbody cage placement. 3. L4-5, L5-S1 decompressive laminectomy with bilateral facetecomies 4. L4-5, L5-S1 Posterior segmental instrumentation 5. Emden of bone marrow from iliac crest 6. Utilization of microsurgical technique and operating microscope 7. Utilization of robotic assisted navigation Same procedure as scheduled: Yes Indications: Patient has been having chronic back pain and worsening lumbar radiculopathy and symptoms of neurogenic claudication. Patient failed multiple conservative management with worsening pain weakness and numbness in his lower extremity.? Patient has been having difficulty performing activity of daily living.? After discussing risks benefits of treatment options, patient elected proceed with surgery. Surgeon: Connie Goins Warp Spooler: Dolores Jordan Click Yes if Unassisted: No Anesthesia Type: General Operative Notes Closure Type: primary Specimen(s): none sent Prosthetic devices, grafts, tissues, transplants, or devices: Globus CREO MIS screws, Rise cages Estimated Blood Loss (mL): 100 Blood products transfused: none Status at Discharge Cognitive/behavioral status at discharge: at baseline, oriented Functional status at discharge: uses cane/walker Overall status at discharge: patient is progressing back to baseline Exam Vital Signs (past 8 hours): - 10/23/22 01:58 10/23/22 04:00 Temperature 98.1 F Pulse Rate 88 91 H Respiratory Rate 15 19 Blood Pressure 110/75 Pulse Oximetry 91 94 Oxygen Flow Rate 1.5 1.5 Fraction of Inspired Oxygen 40 SaO2/FiO2 Ratio 237 Oxygen Delivery Method Room Air Oxygen Flow Rate 1.5 Narrative Exam Narrative: Pleasant 59-year-old male, resting comfortably in his chair, eating breakfast. Nasal cannula oxygen is off. Lumbar dressing is rolled, there is mild surr ounding ecchymosis, no induration, no marley pus. Bilateral lower extremity: Motor functions are grossly intact, sensation is grossly intact to light touch, calves are soft and nontender to palpation. 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 Leiden mutation (10/02/15) History of deep venous thrombosis (10/02/15) History of Mohs micrographic surgery for skin cancer HTN (hypertension) Measles Mixed hyperlipidemia (10/02/15) Mumps Renal insufficiency SCC (squamous cell carcinoma) (10/15/22) Surgical History Anesthesia History of bunionectomy of left great toe History of bunionectomy of right great toe History of surgery (~01/1999) Hx of colonoscopy No pertinent past surgical history Family History Father History of heart disease Mother Cancer Social History household members: spouse Smoking Status: Former smoker Tobacco: How many years used: 10 quit status: has quit before alcohol intake: current substance use type: does not use Discharge Assessment & Plan Assessment and Plan Assessment: -stable status post L4-5, L5-S1 TLIF -Post operative Acute respiratory failure with hypoxia, imporving Plan of Treatment: -mobilize with PT/OT. Weightbearing as tolerated with front wheel walker or cane. No bending, lifting, twisting x6 weeks -continue with multimodal pain management -discontinue urinary catheter today -acute respiratory failure: Chest x-ray ordered today, titrating oxygen on N/C. Possibly DC home with home oxygen, based on respiratory therapy recommendation -dressing change prior to discharge -DC home when cleared by PT/OT and respiratory therapy Discharge Plan Discharge Plan Patient Disposition: Home Discharge orders & Medications Prescriptions: New acetaminophen 500 mg capsule 500 mg PO Q4H MDD Max 3000 mg per day PRN (Reason: Pain, Mild (1-3)) Qty: 90 0RF docusate sodium 100 mg Capsule 100 mg PO BID PRN (Reason: constipation) Qty: 20 0RF hydroxyzine pamoate 25 mg Capsule 25 mg PO Q4HR PRN (Reason: Muscle spasm/pain/nausea) Qty: 40 0RF oxycodone 5 mg Tablet See Rx Instructions .ROUTE .COMPLEX PRN (Reason: Pain, Severe (7-10)) Qty: 42 0RF Rx Instructions: Take 1-2 tablets by mouth every 4 hours as needed for moderate to severe postoperative pain acetaminophen [Tylenol Extra Strength] 500 mg tablet 500 mg PO Q4-6H MDD 6 tabs/day PRN (Reason: pain) Qty: 90 0RF Rx Instructions: ok for OTC oxycodone 5 mg capsule 5 mg PO Q4H PRN (Reason: pain) Qty: 42 0RF docusate sodium 100 mg tablet 100 mg PO BID PRN (Reason: constipation) Qty: 30 0RF hydroxyzine pamoate [Vistaril] 25 mg capsule 25 mg PO QID PRN (Reason: Muscle spasms/pain/nausea) Qty: 60 0RF Continued hydrocodone-acetaminophen 5-325 mg tablet 1 tab PO Q8H PRN (Reason: pain) Qty: 20 0RF lisinopril 20 mg tablet See Rx Instructions .ROUTE .COMPLEX Qty: 90 3RF Dose Instruction: TAKE 1 TABLET DAILY Rx Instructions: TAKE 1 TABLET DAILY atorvastatin 20 mg tablet 20 mg PO BEDTIME Qty: 90 1RF Rx Instructions: APPT DUE W/PCP COME 09/2022. PLEASE CALL TO SCHEDULE FUTURE APPT. THANK YOU 04/30/22. hydrochlorothiazide 25 mg tablet See Rx Instructions .ROUTE .COMPLEX Qty: 90 0RF Dose Instruction: TAKE 1 TABLET DAILY (NEEDS APPOINTMENT WITH PROVIDER FOR FURTHER REFILLS) Rx Instructions: TAKE 1 TABLET DAILY (NEEDS APPOINTMENT WITH PROVIDER FOR FURTHER REFILLS) amlodipine 5 mg tablet See Rx Instructions .ROUTE .COMPLEX Qty: 90 0RF Dose Instruction: TAKE 1 TABLET DAILY (NEEDS APPOINTMENT WITH PROVIDER FOR FURTHER REFILLS) Rx Instructions: TAKE 1 TABLET DAILY (NEEDS APPOINTMENT WITH PROVIDER FOR FURTHER REFILLS) Eliquis 5 mg tablet 5 mg PO BID Qty: 180 0RF tadalafil 20 mg tablet See Rx Instructions PO DAILY PRN (Reason: sexual activity) Qty: 30 3RF Label Comments: several weeks ago Rx Instructions: 0.5-1 tab (10-20mg) orally daily PRN; aspirin 81 mg tablet,delayed release (DR/EC) 81 mg PO DAILY Follow up/Referrals: Connie Goins MD [Physician] - As previously scheduled (10-14 days for postoperative visit) Adonis Boone DO [Primary Care Provider] - (Follow-up with your PCP for low oxygenation levels after your surgery) Diet/Activity/Treatments Diet: Diet as Tolerated Other treatments: Dressing/Wound care: -Keep dressing in place until postoperative follow-up office visit. -Okay to shower. Keep wound out of direct water stream. Can use PressNSeal p lastic wrap to protect from shower stream. No soaking or submerging until all the scabs fall off (approximately 6 weeks). -Please call the office if dressing becomes wet, soiled, or saturated. Activities: -Limit bending, lifting, twisting x6 weeks. No deep bending (more than 90 degrees) or twisting at the waist. No lifting > 20 pounds. -Walk frequently. -Weight-bearing as tolerated. Use front wheeled walker, and progress to cane when safe. -Continue with home exercises as directed by your physical therapist. -Ice your incision as needed for pain/inflammation/swelling. Protect your skin with a folded pillowcase. -Incentive Spirometer (breathing device from hospital): 5-10xs every hour while awake for the first 1-2 weeks. Follow-up: -Follow-up with your surgeon or PA in the office in 10-14 days after surgery. -Follow-up with your surgeon 6 weeks postoperatively. Call the office if you have chest pain, shortness of breath, significant swelling that will not resolve with elevating, fever over 101?, significantly worsening pain, or are concerned you might need to go to the Emergency Room. [facility]: [phone] Skin/Wound/Dressing Care Report to your healthcare provider any signs of infection, such as:: chills, fever, night sweats, unusual drainage and unusual redness Visit Report/Discharge Packet Instructions: DI for Prescription Opioid Use, DI for Transforaminal Lumbar Interbody Fusion Stand Alone Forms: Surgery Discharge Discharge Data Primary Care Provider: Adonis Boone VTE Deep Vein Thrombosis/Pulmonary Embolism Present on Admission: No
[2022-10-23 08:55] VITALS: BP 98/71; PULSE 98
--- NOTE | 2022-10-23 09:12 | CM.IDA ---
Initial DCP Assessment Note Pt is a 67 yo male, resident of [place], now POD#1 from spinal surgery by Dr Goins PCP: Kj Novoa Payer: [employer] [facility] Reviewed chart, Therapy has cleared pt for return home w/family to assist and pt has planned for home, DC order from Ortho has already been initiated this morning. Patient has required O2 post operatively and is hopeful he will not need it upon discharge, patient does not use O2 at home No barriers identified at this time to patient's safe discharge home w/spouse to assist; close outpatient f/u recommended. CM team available today in case any discharge needs or concerns arise RAJIV Han
--- NOTE | 2022-10-23 09:54 | PT.IPTN ---
Current Diagnoses Other idiopathic scoliosis, thoracolumbar region (10/21/22) Spondylolisthesis, lumbar region (10/21/22) Spinal stenosis, lumbar region with neurogenic claudication (10/21/22) Surgery Performed Operation Date: 10/21/22 12:15 Actual Procedures p L4-5, L5-S1 TLIF w. posterior instrumentation -Robot(Not Applicable) - Connie Goins MD Physical Therapy Treatment Note M2 PT-IP Current Condition Start: 10/22/22 11:54 Freq: NEEDED Status: Active Protocol: Document 10/23/22 09:58 TS (Rec: 10/23/22 10:26 TS [id number]) Physical Therapy Current Condition Current Condition Evaluation Date 10/22/22 Treatment Diagnosis s/p L4-5, L5S1 TLIF; difficulty in walking Onset Date 10/21/22 M3 PT-IP Subjective Start: 10/22/22 11:54 Freq: NEEDED Status: Active Protocol: Document 10/23/22 09:58 TS (Rec: 10/23/22 10:26 TS [id number]) Subjective Physical Therapy Visit Type Type Treatment Note Visit Start Time 09:32 Visit Stop Time 09:54 Total Visit Minutes 22 Notes SPTA Stephan lead treatment supervised by CHRYSTAL Palmer. Number of SOCIOLOGY INSTRUCTOR Visits 1 Physical Therapy Visit Comments Patient Comments Pt and spouse agreeable to caregiver training. Patient Goals plans to go home with to assist him. Therapy Pain Assessment Pain When Pain Assessed At Rest Pain Present Pain Present Pain Reported Location lower back Intensity 4 Scale Used Numeric (0 - 10) Pain Management Techniques Modification of Treatment,Re- positioning,Timing of Activity with Medications M4 PT-IP Mobility and Gait Start: 10/22/22 11:54 Freq: NEEDED Status: Active Protocol: Document 10/23/22 09:58 TS (Rec: 10/23/22 10:26 TS [id number]) PT-Bed Mobility Assessment Rolling Type of Rolling Log Rolling Level of Assist Standby Assistance Supine to Sit Supine to Sit Standby Assistance Sit to Supine Sit to Supine Standby Assistance Scooting Scooting to Edge of Bed Standby Assistance PT-Transfer Assessment Sit to and From Stand Sit to and from Stand Standby Assistance Equipment Transfer Assistive Device Gait Belt,Front Wheeled Walker Orthotic/Prosthetic Devices or Brace: No Comments Mobility Comments Pt found resitng in bedside chair with nursing removing catheter. Spouse is present for caregiver training. Pt stood SBA with no AD support. Instructed spouse on donning/ doffing gait belt and how to hold belt during ambulation. Pt ambulated to bathroom x8' CGA and performed stand to sit SBA to toilet with handrail assist. Pt performed sit to stand Marcellus from toilet with FWW and ambulated out into hallway with a step thru gait and back to room x175' with CGA from spouse. Spouse instructed on proper positioning during pt ambulation. Pt sat EOB and demonstrated good carryover of log roll into supine, with some laboring. Pt performed log roll back into sitting SBA, demonstrated good use of UEs and spinal precautions. Pt was left on EOB with spouse, call light nearby and RN notified of pt being Marcellus with FWW in room. Gait Assessment Gait Gait Assistance Required: Independent,Standby Assistance ,Contact Guard Assist Distance (Feet) 190 Able to Maintain Weight Bearing Status Yes During Gait Assistive Devices Assistive Device Gait Belt,Front Wheeled Walker Orthotic/Prosthetic Devices or Brace: No Gait Deviations General Gait Pattern Decreased Stride Length Factors Limiting Gait Function Factors Limiting Gait Function Decreased Activity Tolerance, Decreased Strength,Pain Comments Gait Comments See mobility comments PT-Balance Assessment Sitting Balance and Reactions Static Sitting Balance Ability Good Dynamic Sitting Balance Ability Fair Standing Balance and Reactions Static Standing Balance Ability Good Dynamic Standing Balance Ability Fair Device Used FWW Comments Other Balance Tests/Deviations/Treatment Pt demonstrated good sitting : balance with use of BUE support and stood without AD with no buckling. M5 PT-IP Objective Assessments Start: 10/22/22 11:54 Freq: NEEDED Status: Active Protocol: Document 10/22/22 09:15 AB (Rec: 10/22/22 12:03 AB [id number]) Orientation Orientation/Cognition Level of Alertness Alert Orientation Name,Place,Situation Language Function Ability No Deficits Noted Safety Awareness Decreased Safety Awareness Gross Range of Motion Lower Extremity ROM Assessment Within Functional Limits Strength Lower Extremity Strength Assessment Bilaterally Impaired Hip L: 3+/5 R: 3-/5 Knee 3+/5 Coordination Assessment Gross Coordination Gross Coordination WNL Sensation Assessment Sensation Gross Sensation WNL Muscle Tone Muscle Tone WNL Yes M6 PT-IP Treatment Start: 10/22/22 11:54 Freq: NEEDED Status: Active Protocol: Document 10/23/22 09:58 TS (Rec: 12/07/22 10:26 TS [id number]) Physical Therapy Treatment Education Education Provided Precautions,Safety M7 PT-IP Assessment and Plan Start: 10/22/22 11:54 Freq: NEEDED Status: Active Protocol: Document 10/23/22 09:58 TS (Rec: 10/23/22 10:26 TS [id number]) PT Summary Assessment and Plan Potential Rehabilitation Potential Good Status of Condition at Evaluation Evolving Summary Impairments Pain,ROM,Strength,Balance, Coordination,Sensation,Tone, Cognition,Bed Mobility, Transfers,Gait,Activity Tolerance Progress Towards Goals Progressing Toward Goals,Slow Progress due to Activity Tolerance Assessment Summary Pt demonstrated good recall and carryover of spinal precautions and logroll. Pt perfromed sit to stands x1 with no AD and x1 with AD Marcellus . He increased his ambulation distance to ~190' with CGA from spouse. Pt progressed to Marcellus with FWW in room. He performed sit to supine and supint to sit SBA with use of handrails and cues for core act. PT is recommending return home with spouse, when medically cleared. Pt canc ontract physician for further questioning. Goals Bed Mobility Goal Standby Assistance Transfer Goal Standby Assistance,Front Wheeled Walker Gait Goal Standby Assistance,Front Wheel Walker Gait Distance 150 Days to Meet Goals 5 Frequency of Treatment Frequency Of Treatment Twice a Day Treatment Plan Physical Therapy Treatment Plan Bed Mobility Training,Transfer Training,Gait Training, Therapeutic Exercise,Balance Retraining,Post Op Education, Discharge Planning,Hot or Cold Pack,Neuromuscular Re-ed, Coordination Retraining,Manual Therapy Precautions Lumbar Precautions Log Roll,No Twisting,Limit Bending,Lifting Restriction of 10 lbs,Gait Belt above Incisional Area Recommendations To Nursing Amount of Assist Needed Independent Discharge Recommendations PT Discharge Recommendations Home with Assistance Transportation Needs at Discharge Private Vehicle,Wheelchair/ Cabulance
== END 2022-10-23 10:27 | disposition home or self-care (01) | DRG 453 ==
PROVIDERS: Admitting Provider Orthopaedic Surgery Orthopaedic Surgery of the Spine; PCP Family Medicine; Referring Provider Orthopaedic Surgery Orthopaedic Surgery of the Spine; Visit Provider Orthopaedic Surgery Orthopaedic Surgery of the Spine
PROC: 0SG00AJ Fusion of Lumbar Vertebral Joint with Interbody Fusion Device, Posterior Approach, Anterior Column, Open Approach (ICD-10-PCS; principal; 2022-10-21 12:15)
DX: M43.16 Spondylolisthesis, lumbar region (principal); J96.01 Acute respiratory failure with hypoxia; M48.062 Spinal stenosis, lumbar region with neurogenic claudication; M41.56 Other secondary scoliosis, lumbar region; M43.17 Spondylolisthesis, lumbosacral region; M48.07 Spinal stenosis, lumbosacral region; I10 Essential (primary) hypertension; E78.2 Mixed hyperlipidemia; Z20.822 Contact with and (suspected) exposure to COVID-19; Z87.891 Personal history of nicotine dependence; Z86.718 Personal history of other venous thrombosis and embolism; Z79.01 Long term (current) use of anticoagulants
CPT/HCPCS: 71045; 72100; 76000; 85014; 85018; 87635; 94760; 97162; 97165; 97530; 97535; C9803; S2900; J0171; J0330; J0690; J1170; J2704; J3010; J3410

== ENCOUNTER 2022-11-27 11:40 | Observation (INO) | payer BC, OTHER, SELFPAY ==
[2022-10-21 19:17] VITALS: BMI 32.5
[2022-11-27 11:43] VITALS: BP 132/82; PULSE 83; RESP 15; TEMP 36.4; O2SAT 96; BMI 33.9
--- NOTE | 2022-11-27 11:49 | ED.ALLEREA ---
HPI - Allergic Reaction General Chief complaint: Allergic Reaction Stated complaint: allergic reaction, lip swelling Time Seen by Provider: 11/27/22 11:48 Source: patient and family Mode of arrival: Ambulatory Limitations: no limitations History of Present Illness HPI narrative: Patient is a 67-year-old male who is here for evaluation of swelling to his upper lip. No rashes. No new exposures to any medications or environment that he knows of. No problems swallowing. No problems breathing. He does take lisinopril. He did take a dose of it this morning. Symptoms started this morning. No fevers. Has not tried anything for symptoms prior to arrival. Related Data Home Medications Medication Instructions Recorded Confirmed aspirin 81 mg tablet,delayed 81 mg PO DAILY 01/22/21 10/21/22 release Previous Rx's Medication Instructions Recorded hydrocodone 5 mg-acetaminophen 325 1 tab PO Q8H PRN pain #20 tabs 10/24/21 mg tablet tadalafil 20 mg tablet See Rx Instructions PO DAILY PRN 08/22/22 sexual activity #30 tabs acetaminophen 500 mg capsule 500 mg PO Q4H PRN Pain, Mild (1-3) 10/23/22 #90 caps acetaminophen 500 mg tablet 500 mg PO Q4-6H PRN pain #90 tabs 10/23/22 (Tylenol Extra Strength) docusate sodium 100 mg capsule 100 mg PO BID PRN constipation #20 10/23/22 caps docusate sodium 100 mg tablet 100 mg PO BID PRN constipation #30 10/23/22 tabs hydroxyzine pamoate 25 mg capsule 25 mg PO Q4HR PRN Muscle 10/23/22 spasm/pain/nausea #40 caps hydroxyzine pamoate 25 mg capsule 25 mg PO QID PRN Muscle 10/23/22 (Vistaril) spasms/pain/nausea #60 caps oxycodone 5 mg capsule 5 mg PO Q4H PRN pain #42 caps 10/23/22 oxycodone 5 mg tablet See Rx Instructions .Route 10/23/22 .COMPLEX PRN Pain, Severe (7-10) #42 tabs amlodipine 5 mg tablet 5 mg PO DAILY #90 tabs 10/30/22 hydrochlorothiazide 25 mg tablet 25 mg PO DAILY #90 tabs 10/30/22 atorvastatin 20 mg tablet 20 mg PO BEDTIME #90 tabs 11/06/22 apixaban 5 mg tablet (Eliquis) 5 mg PO BID #180 tabs 11/07/22 lisinopril 20 mg tablet See Rx Instructions .Route 11/14/22 .COMPLEX #90 tabs Allergies Allergy/AdvReac Type Severity Reaction Status Date / Time codeine [CODEINE] Allergy Severe PASSED OUT Verified 11/27/22 12:04 lisinopril AdvReac Severe Swelling Verified 11/27/22 12:04 of Lip/Tongue/Throat Review of Systems Constitutional Constitutional: Reports system reviewed and no additional complaints, except as documented ENT Ears, Nose, Mouth, and Throat: Reports system reviewed and no additional complaints, except as documented Respiratory Respiratory: Reports system reviewed and no additional complaints, except as documented Gastrointestinal Gastrointestinal: Reports system reviewed and no additional complaints, except as documented Integumentary/Breasts Skin/Breast: Reports system reviewed and no additional complaints, except as documented Hematologic/Lymphatic On Anticoagulants: No Patient History Medical History Cephalgia Cervical spondylosis Chicken pox Chronic back pain COVID-19 virus infection (04/29/22) Erectile dysfunction Essential hypertension (10/02/15) Fractures Herpes zoster ophthalmicus of left eye Heterozygous factor V Leiden mutation (10/02/15) History of deep venous thrombosis (10/02/15) History of Mohs micrographic surgery for skin cancer HTN (hypertension) Measles Mixed hyperlipidemia (10/02/15) Mumps Renal insufficiency SCC (squamous cell carcinoma) (10/15/22) Surgical History Anesthesia History of bunionectomy of left great toe History of bunionectomy of right great toe History of surgery (~01/1999) Hx of colonoscopy No pertinent past surgical history Family History Father History of heart disease Mother Cancer Social History household members: spouse Smoking Status: Former smoker Tobacco: How many years used: 10 quit status: has quit before alcohol intake: current substance use type: does not use Smoking Status: Former smoker alcohol intake frequency: a few times a week Substance Use Type: does not use Exam Initial Vital Signs Initial Vital Signs: Vital Signs Temperature 97.6 F 11/27/22 11:43 Pulse Rate 83 11/27/22 11:43 Respiratory Rate 15 11/27/22 11:43 Blood Pressure 132/82 11/27/22 11:43 Pulse Oximetry 96 11/27/22 11:43 Oxygen Delivery Method 11/27/22 11:43 Const General: cooperative, comfortable and No ill appearing HENMT Mouth: moist mucous membranes HENMT Other: Swollen upper lip and swollen uvula. Potentially swollen tongue but this is minor. No erythema. Resp Effort & Inspection: normal respiratory effort Auscultation: clear to auscultation bilaterally Cardio Rate: regular rate Rhythm: regular rhythm Skin General: no rashes or lesions noted Extrem General: normal to inspection and capillary refill normal Course Orders Ordered: ED Orders 11/27/22 11:48 COVID19 -Nasal RAPID/Pre-Proc Stat 11/27/22 11:50 Basic Metabolic Panel Stat Complete Blood Count AUTO DIFF Stat 11/28/22 05:00 BMP [Basic Metabolic Panel] DAILY CBC Auto Diff [Complete Blood Count AUTO DIFF] DAILY 11/29/22 05:00 BMP [Basic Metabolic Panel] DAILY CBC Auto Diff [Complete Blood Count AUTO DIFF] DAILY 11/30/22 05:00 BMP [Basic Metabolic Panel] DAILY CBC Auto Diff [Complete Blood Count AUTO DIFF] DAILY Acetaminophen (Acetaminophen 325 Mg Tablet) 650 mg PO Q6H PRN PRN Reason: Fever/Mild Pain (1-3) Famotidine (Famotidine 20 Mg/2 Ml Vial) 20 mg IV NOW [facility] Last Admin: 11/27/22 11:55 Dose: 20 mg Documented By: GEORGE Sodium Chloride (Normal Saline 0.9%) 1,000 mls @ 125 mls/hr IV CONT [facility] Last Admin: 11/27/22 11:55 Dose: 125 mls/hr Documented By: GEORGE Melatonin (Melatonin 3 Mg Tablet) 6 mg PO BEDTIME PRN PRN Reason: Insomnia Naloxone HCl (Naloxone 0.4 Mg/Ml Vial) 0.2 mg IV Q2MIN PRN PRN Reason: Opiate Reversal Discontinued Medications Diphenhydramine HCl (Diphenhydramine 50 Mg/Ml Vial) 50 mg IV NOW ONE Stop: 11/27/22 11:49 Last Admin: 11/27/22 11:51 Dose: 50 mg Documented By: GOERGE Methylprednisolone (Methylprednisolone 125 Mg/2 Ml Vial) 125 mg IV NOW ONE Stop: 11/27/22 11:49 Last Admin: 11/27/22 11:51 Dose: 125 mg Documented By: GEORGE Vital Signs Vital signs: Vital Signs - 8 hr 11/27/22 11:43 Temperature 97.6 F Pulse Rate 83 Respiratory Rate 15 Blood Pressure 132/82 Pulse Oximetry 96 Oxygen Delivery Method Room Air MDM - Allergic Reaction Differential Diagnosis Differential diagnosis: Likely anaphylaxis, allergic reaction, angioedema, viral enanthem, other and urticaria Condition is:: Well Controlled Condition is at treatment goal?: No Discussed with:: Hospitalist Lab Data Attestation: I reviewed the patient's lab results. Result diagrams: 11/27/22 11:50 11/27/22 11:50 Labs: Lab Results 11/27/22 Range/Units 11:50 WBC 8.4 (4.5-11.0) X10^3/uL RBC 4.20 L (4.5-5.9) X10^6/uL Hgb 13.6 (13.5-17.5) g/dL Hct 41.2 (41-53) % MCV 98.1 (80-100) fL MCH 32.4 (26-34) PG MCHC 33.0 (30-36) % RDW 14.4 (11.6-14.8) % Plt Count 235 (150-400) X10^3/uL Neut % (Auto) 66.3 (50-75) % Lymph % (Auto) 21.5 L (25-40) % [place] % (Auto) 8.8 (3-14) % Eos % (Auto) 2.9 (2-4) % Baso % (Auto) 0.5 (0-2) % Neut # (Auto) 5600 (5008-3680) /uL Lymph # (Auto) 1800 (8470-4151) /uL [place] # (Auto) 700 (0-900) /uL Eos # (Auto) 200 (0-450) /uL Baso # (Auto) 0 (0-100) /uL Treatment and Disposition Shared decision making:: Need for admission to the hospital given his presenting symptoms MDM Narrative Medical decision making narrative: Patient does have findings that are most consistent with angioedema. He is having no respiratory distress. No muffled voice. No problems swallowing. He has no urticaria. We did discuss that this can happen even though he has been on lisinopril for months/years. He was given Benadryl and Solu-Medrol given the small chance that this is a histamine related reaction although I am not 100% convinced this will resolve his symptoms. Given the fact that it is his mouth he does need admission to the hospital for airway watch. Discussed the case with Dr. Varela on-call for hospitalist who will admit for further evaluation and treatment. Discussed need for admission with the patient who expressed understanding and agreement as well. Discharge Plan Departure Patient Disposition: Admitted as Observation Clinical Impression: Angioedema Admit Date/Time: 11/27/22 12:14
[2022-11-27] MEDS: methylPREDNISolone 125 MG/2 ML VIAL IV (11:51)
[2022-11-27] MEDS: diphenhydrAMINE 50 MG/ML VIAL IV (11:51)
[2022-11-27] MEDS: FAMOTIDINE 20 MG/2 ML VIAL IV (11:55)
[2022-11-27] MEDS: SODIUM CHLORIDE 0.9% 1,000 ML 125 ML IV (11:55)
[2022-11-27 12:05] LABS: Add Manual Diff / Slide Review NO; Basophils Absolute Auto 0 /uL (0-100); Basophils Percent Auto 0.5 % (0-2); Eosinophils Absolute Auto 200 /uL (0-450); Eosinophils Percent Auto 2.9 % (2-4); Hematocrit 41.2 % (41-53); Hemoglobin 13.6 g/dL (13.5-17.5); Lymphocytes Absolute Auto 1800 /uL (1100-4500); Lymphocytes Percent Auto 21.5 % (25-40); Mean Corpuscular Hemoglobin 32.4 PG (26-34); Mean Corpuscular Volume 98.1 fL (80-100); Monocytes Absolute Auto 700 /uL (0-900); Monocytes Percent Auto 8.8 % (3-14); Neutrophils Absolute Auto 5600 /uL (1500-7000); Neutrophils Percent Auto 66.3 % (50-75); Platelet Count 235 X10^3/uL (150-400); Red Cell Distribution Width 14.4 % (11.6-14.8); White Blood Cell Count 8.4 X10^3/uL (4.5-11.0)
--- NOTE | 2022-11-27 12:10 | P.HP_ITS ---
History of Present Illness History of Present Illness Date Patient Seen: 11/27/22 Chief complaint: allergic reaction, lip swelling Narrative: Santhosh Duff is a 67yo M with PMH of DVT secondary to factor 5 Leiden on Eliquis, hypertension, hyperlipidemia, CKD stage 3, and chronic back pain s/p recent spinal surgery who presents with angioedema. Patient states he took his dose of lisinopril which he has been on for 20 years at approximately 8:00 a.m. this morning and then developed a progressive swelling of his upper lip at around 10:00 am. The swelling progressed until his whole upper lip was swollen. For this he presented to the ED where he was diagnosed with angioedema and giv en IV Solu-Medrol, Benadryl and pepcid. No airway was noted. Lisinopril was added to his allergy list. He states currently his left cheek feels swollen but he denies involvement of his tongue or throat. He states his PCP recently lowered the lisinopril from 40 mg to 20 mg daily due to a persistent cough. Patient denies difficulty swallowing, nausea vomiting, chest pain, abdominal pain or diarrhea. Patient History Medical History Cephalgia Cervical spondylosis Chicken pox Chronic back pain COVID-19 virus infection (04/29/22) Erectile dysfunction Essential hypertension (10/02/15) Fractures Herpes zoster ophthalmicus of left eye Heterozygous factor V Leiden mutation (10/02/15) History of deep venous thrombosis (10/02/15) History of Mohs micrographic surgery for skin cancer HTN (hypertension) Measles Mixed hyperlipidemia (10/02/15) Mumps Renal insufficiency SCC (squamous cell carcinoma) (10/15/22) Surgical History Anesthesia History of bunionectomy of left great toe History of bunionectomy of right great toe History of surgery (~01/1999) Hx of colonoscopy No pertinent past surgical history Family & Social History Family History Father History of heart disease Mother Cancer Social History: household members spouse Safety & Behavioral: Feels Safe in Current Yes Environment Been Physically Hurt or No Threatened By a Person Tobacco & Substance use: Smoking Status Former smoker alcohol intake current alcohol intake frequency a few times a week Substance Use Type does not use Meds Home Medications and Allergies Home Medications Medication Instructions Recorded Confirmed Type aspirin 81 mg tablet,delayed 81 mg PO DAILY 01/22/21 11/27/22 History release tadalafil 20 mg tablet See Rx Instructions PO DAILY PRN 08/22/22 11/27/22 Rx sexual activity #30 tabs acetaminophen 500 mg capsule 500 mg PO Q4H PRN Pain, Mild (1-3) 10/23/22 11/27/22 Rx #90 caps amlodipine 5 mg tablet 5 mg PO DAILY #90 tabs 10/30/22 11/27/22 Rx hydrochlorothiazide 25 mg tablet 25 mg PO DAILY #90 tabs 10/30/22 11/27/22 Rx atorvastatin 20 mg tablet 20 mg PO BEDTIME #90 tabs 11/06/22 11/27/22 Rx apixaban 5 mg tablet (Eliquis) 5 mg PO BID #180 tabs 11/07/22 11/27/22 Rx Allergies Allergy/AdvReac Type Severity Reaction Status Date / Time codeine [CODEINE] Allergy Severe PASSED OUT Verified 11/27/22 12:04 lisinopril AdvReac Severe Swelling Verified 11/27/22 12:04 of Lip/Tongue/Throat Review of Systems Review of Systems Narrative: All other systems reviewed with the patient and are negative unless otherwise stated. Exam Vital Signs (past 8 hours): - 11/27/22 11:43 Temperature 97.6 F Pulse Rate 83 Respiratory Rate 15 Blood Pressure 132/82 Pulse Oximetry 96 Oxygen Delivery Method Room Air Oxygen Delivery Method Room Air Narrative Exam Narrative: GEN: no acute distress HEENT: moist mucous membranes, PERRL, upper lip is quite swollen with mild swelling of left cheek involvement of lower lip, tongue or throat NECK: trachea midline, no JVD CV: regular rate and rhythm, no murmurs PULM: clear bilaterally ABD: soft, nontender, nondistended, no organomegaly EXT: warm and well perfused with no edema NEURO: awake, alert, oriented, no focal deficits Objective Labs Result Diagrams: 11/27/22 11:50 11/27/22 11:50 Labs: Laboratory Results - last 24 hr 11/27/22 11:50 WBC 8.4 RBC 4.20 L Hgb 13.6 Hct 41.2 MCV 98.1 MCH 32.4 MCHC 33.0 RDW 14.4 Plt Count 235 Neut % (Auto) 66.3 Lymph % (Auto) 21.5 L [place] % (Auto) 8.8 Eos % (Auto) 2.9 Baso % (Auto) 0.5 Neut # (Auto) 5600 Lymph # (Auto) 1800 [place] # (Auto) 700 Eos # (Auto) 200 Baso # (Auto) 0 Assessment & Plan Assessment & Plan narrative: # acute angioedema secondary to LEIF inhibitor -patient on lisinopril and recently developed cough, took a dose the morning of admission 2 hours later developed acute swelling of the upper lip -receive Solu-Medrol, Benadryl and Pepcid in the ED -no airway compromise noted, epinephrine IV PRN ordered if develops difficulty breathing -Benadryl IV as needed if swelling -lisinopril added to his allergy list -continue to monitor for at least 24 hours -clear liquid diet and advance as tolerated # HTN, chronic -hold home lisinopril and continue amlodipine and hydrochlorothiazide # hyperlipidemia, chronic -continue home statin # history of DVT secondary to factor 5 Leiden -continue home Eliquis Code status is full code. COVID negative. DVT prophylaxis with Eliquis. Proxy is Shyla. I have reviewed home meds and used all available resources to reconcile the home meds. This patient will be admitted as observation and will require less than 2 midnights of hospital time to treat angioedema. Time Spent With Patient Critical Care time: I spent a total of [] minutes of critical care time on this patient's care today; this time is exclusive of procedural time.
[2022-11-27 12:17] LABS: BUN Creatinine Ratio 25.9 (6-22); Blood Urea Nitrogen 35 mg/dL (9-20); Carbon Dioxide 27 mmol/L (22-32); Chloride 103 mmol/L (98-107); Estimated Glomerular Filt Rate 57 mL/min (>60); Glucose 81 mg/dL (80-110); HEMOLYSIS < 15 (0-50); Potassium 4.3 mmol/L (3.4-5.1); Sodium 141 mmol/L (137-145)
[2022-11-27 14:26] VITALS: BMI 33.9
[2022-11-27 15:29] LABS: COVID19 -Nasal RAPID Negative (Negative)
[2022-11-27 20:50] VITALS: BP 126/81; PULSE 78; RESP 20; TEMP 36.9; O2SAT 94
[2022-11-27] MEDS: APIXABAN 5 MG TABLET PO (20:51)
[2022-11-27] MEDS: ATORVASTATIN 20 MG TABLET PO (20:51)
[2022-11-28 03:30] VITALS: BP 126/63; PULSE 71; RESP 17; TEMP 36.3; O2SAT 93
[2022-11-28 05:50] VITALS: BP 126/63; PULSE 71; RESP 18; TEMP 36.3; O2SAT 93
--- NOTE | 2022-11-28 06:32 | PC.NURSE ---
Pt is AxOx4, independent and cooperative. VSS, pt denies pain. Swelling on the lips has decreased. No problem identified overnight. Continue monitor.
--- NOTE | 2022-11-28 07:18 | PM.DS.1 ---
History of Present Illness History of Present Illness Date Patient Seen: 11/28/22 Chief complaint: allergic reaction, lip swelling Narrative: Santhosh Duff is a 67yo M with PMH of DVT secondary to factor 5 Leiden on Eliquis, hypertension, hyperlipidemia, CKD stage 3, and chronic back pain s/p recent spinal surgery who presents with angioedema. Patient states he took his dose of lisinopril which he has been on for 20 years at approximately 8:00 a.m. this morning and then developed a progressive swelling of his upper lip at around 10:00 am. The swelling progressed until his whole upper lip was swollen. For this he presented to the ED where he was diagnosed with angioedema and given IV Solu-Medrol, Benadryl and pepcid. No airway was noted. Lisinopril was added to his allergy list. He states currently his left cheek feels swollen but he denies involvement of his tongue or throat. He states his PCP recently lowered the lisinopril from 40 mg to 20 mg daily due to a persistent cough. Patient denies difficulty swallowing, nausea vomiting, chest pain, abdominal pain or diarrhea. Discharge Providers Provider Date of admission: 11/27/22 12:14 Discharge Date: 11/28/22 Primary care physician: Adonis Boone DO Consults: 11/27/22 14:35 Consult to Pastoral Services Routine Comment: Just wants a visit Discharge provider: Ming Varela DO Summary Hospital Course Discharge Diagnosis: # acute angioedema secondary to LEIF inhibitor -patient on lisinopril and recently developed cough, took a dose the morning of admission 2 hours later developed acute swelling of the upper lip -received Solu-Medrol, Benadryl and Pepcid in the ED -no airway compromise noted, epinephrine IV PRN ordered if develops difficulty breathing -Benadryl IV as needed if swelling -lisinopril added to his allergy list -swelling had substantially improved the next day # HTN, chronic -hold home lisinopril and continue amlodipine and hydrochlorothiazide, f/u with PCP for alternative BP med # hyperlipidemia, chronic -continue home statin # history of DVT secondary to factor 5 Leiden -continue home Eliquis Hospital Course: Admitted for acute angioedema involving upper lip which swelling to about 3x normal. Likely due to patient's lisinopril. Also had some swelling of the left cheek but no tongue or throat involvement. He was given IV steroids, benadryl and pepcid in the ED. Lisinopril added to allergy list. Monitored for 24 hours then discharged as swelling had almost completely resolved 24 hours after admission. Time Spent with Patient Time spent: Greater than 30 minutes Exam Vital Signs (past 8 hours): - 11/28/22 03:30 11/28/22 05:50 Temperature 97.3 F L 97.3 F L Pulse Rate 71 71 Respiratory Rate 17 18 Blood Pressure 126/63 126/63 Pulse Oximetry 93 93 Oxygen Flow Rate 0 0 Oxygen Delivery Method Room Air Oxygen Flow Rate 0 Narrative Exam Narrative: GEN: no acute distress HEENT: moist mucous membranes, PERRL, upper lip is quite swollen with mild swelling of left cheek without involvement of lower lip, tongue or throat NECK: trachea midline, no JVD CV: regular rate and rhythm, no murmurs PULM: clear bilaterally ABD: soft, nontender, nondistended, no organomegaly EXT: warm and well perfused with no edema NEURO: awake, alert, oriented, no focal deficits Objective Labs Result Diagrams: 11/28/22 07:39 11/28/22 07:39 Labs: Laboratory Results - last 24 hr 11/27/22 11/27/22 11/27/22 11:50 11:50 11:52 WBC 8.4 RBC 4.20 L Hgb 13.6 Hct 41.2 MCV 98.1 MCH 32.4 MCHC 33.0 RDW 14.4 Plt Count 235 Neut % (Auto) 66.3 Lymph % (Auto) 21.5 L [place] % (Auto) 8.8 Eos % (Auto) 2.9 Baso % (Auto) 0.5 Neut # (Auto) 5600 Lymph # (Auto) 1800 [place] # (Auto) 700 Eos # (Auto) 200 Baso # (Auto) 0 Sodium 141 Potassium 4.3 Chloride 103 Carbon Dioxide 27 BUN 35 H Creatinine 1.35 H Estimated GFR 57 L BUN/Creatinine Ratio 25.9 H Glucose 81 Calcium 9.0 SARS-CoV-2 (PCR) Negative [facility] Medical History Cephalgia Cervical spondylosis Chicken pox Chronic back pain COVID-19 virus infection (04/29/22) Erectile dysfunction Essential hypertension (10/02/15) Fractures Herpes zoster ophthalmicus of left eye Heterozygous factor V Leiden mutation (10/02/15) History of deep venous thrombosis (10/02/15) History of Mohs micrographic surgery for skin cancer HTN (hypertension) Measles Mixed hyperlipidemia (10/02/15) Mumps Renal insufficiency SCC (squamous cell carcinoma) (10/15/22) Surgical History Anesthesia History of bunionectomy of left great toe History of bunionectomy of right great toe History of surgery (~01/1999) Hx of colonoscopy No pertinent past surgical history Family History Father History of heart disease Mother Cancer Social History household members: spouse Smoking Status: Former smoker Tobacco: How many years used: 10 quit status: has quit before alcohol intake: current substance use type: does not use Discharge Plan Discharge Plan Patient Disposition: Home Provider Discharge Comment: You were admitted for angioedema due to your lisinopril. This is the most feared side-effect of this drug so you will now not take it ever again. Dr. Boone can decide if another blood pressure drug is needed and if so I would guess it would be coreg which is in a different class than the other BP meds you take. Please avoid LEIF inhibitors or ARB's from now on, as these BP meds can trigger this angioedema condition. If you notice any worsening swelling, then please return to the ED immediately. Discharge orders & Medications Prescriptions: Continued tadalafil 20 mg tablet See Rx Instructions PO DAILY PRN (Reason: sexual activity) Qty: 30 3RF Label Comments: several weeks ago Rx Instructions: 0.5-1 tab (10-20mg) orally daily PRN; hydrochlorothiazide 25 mg tablet 25 mg PO DAILY Qty: 90 2RF amlodipine 5 mg tablet 5 mg PO DAILY Qty: 90 2RF atorvastatin 20 mg tablet 20 mg PO BEDTIME Qty: 90 1RF Eliquis 5 mg tablet 5 mg PO BID Qty: 180 0RF aspirin 81 mg tablet,delayed release (DR/EC) 81 mg PO DAILY acetaminophen 500 mg capsule 500 mg PO Q4H MDD Max 3000 mg per day PRN (Reason: Pain, Mild (1-3)) Qty: 90 0RF Follow up/Referrals: Adonis Boone, [Primary Care Provider] - 1 Week Visit Report/Discharge Packet Instructions: DI for Angioedema Stand Alone Forms: Patient Portal/API, Stroke Signs & Symptoms Discharge Data Primary Care Provider: Adonis Boone Attending Provider: Ming Varela VTE Deep Vein Thrombosis/Pulmonary Embolism Present on Admission: No
[2022-11-28 08:06] LABS: Add Manual Diff / Slide Review NO; Basophils Absolute Auto 0 /uL (0-100); Eosinophils Absolute Auto 0 /uL (0-450); Hematocrit 40.3 % (41-53); Hemoglobin 13.5 g/dL (13.5-17.5); Lymphocytes Absolute Auto 900 /uL (1100-4500); Lymphocytes Percent Auto 7.7 % (25-40); Mean Corpuscular HGB Conc 33.6 % (30-36); Mean Corpuscular Hemoglobin 32.3 PG (26-34); Mean Corpuscular Volume 96.2 fL (80-100); Monocytes Absolute Auto 400 /uL (0-900); Monocytes Percent Auto 3.3 % (3-14); Neutrophils Absolute Auto 10500 /uL (1500-7000); Platelet Count 225 X10^3/uL (150-400); Red Blood Cell Count 4.18 X10^6/uL (4.5-5.9); Red Cell Distribution Width 14.2 % (11.6-14.8); White Blood Cell Count 11.8 X10^3/uL (4.5-11.0)
[2022-11-28 08:44] LABS: BUN Creatinine Ratio 29.5 (6-22); Blood Urea Nitrogen 36 mg/dL (9-20); Carbon Dioxide 24 mmol/L (22-32); Chloride 102 mmol/L (98-107); Estimated Glomerular Filt Rate > 60 mL/min (>60); Glucose 125 mg/dL (80-110); HEMOLYSIS < 15 (0-50); Potassium 4.2 mmol/L (3.4-5.1); Sodium 136 mmol/L (137-145)
--- NOTE | 2022-11-28 09:36 | PC.NURSE ---
Pt discharged home by private vehicle at 0930, escorted off floor in wheelchair, accompanied by and hospital staff. IV removed, discharge teaching provided including medications to stop and importance of follow up appointments. All questions answered. Pt left floor with all belongings.
== END 2022-11-28 09:38 | disposition home or self-care (01) ==
LOC: ED 12:14 → AC 12:15
PROVIDERS: Admitting Provider Student in an Organized Health Care Education/Training Program; Emergency Provider Emergency Medicine; PCP Family Medicine; Referring Provider Emergency Medicine; Visit Provider Student in an Organized Health Care Education/Training Program
DX: T78.3XXA Angioneurotic edema, initial encounter (principal); I12.9 Hypertensive chronic kidney disease with stage 1 through stage 4 chronic kidney disease, or unspecified chronic kidney disease; N18.30 Chronic kidney disease, stage 3 unspecified; E78.5 Hyperlipidemia, unspecified; D68.51 Activated protein C resistance; Z86.718 Personal history of other venous thrombosis and embolism; Z79.01 Long term (current) use of anticoagulants; Z20.822 Contact with and (suspected) exposure to COVID-19
CPT/HCPCS: 36415; 80048; 85025; 87635; 96374; 96375; 99284; C9803; G0378; J1200; J2930

== ENCOUNTER 2022-11-30 13:34 | Observation (INO) | payer BC, OTHER, SELFPAY ==
[2022-11-30] VITALS (19 sets, daily range): BP systolic 129–147; BP diastolic 65–88; PULSE 80–101; RESP 16–25; TEMP 36.4–36.5; O2SAT 89–97; BMI 33.9
--- NOTE | 2022-11-30 13:54 | ED.ALLEREA ---
HPI - Allergic Reaction General Chief complaint: Allergic Reaction Stated complaint: onset angioedema per pt Time Seen by Provider: 11/30/22 13:37 Source: patient Mode of arrival: Ambulatory History of Present Illness HPI narrative: 67-year-old male former smoker with history of hypertension, DVTs secondary to factor 5 Leiden, on anticoagulation, melanoma, renal insufficiency, ED, zoster ophthalmicus, presents with his in the chief complaint significant left-sided tongue swelling over the past 4 hours. He denies trouble swallowing or breathing but it is affecting his voice. He denies any new foods, lotions or soaps. He has no rash and has had no GI symptoms such as nausea, vomiting or diarrhea. Patient had been on lisinopril for 20 years and took his last dose on the morning of November 27, few hours later he presented to the emergency department with swelling of his face and lips. He was treated with typical antihistamine medications including epinephrine, steroids, Benadryl and Pepcid but did not have complete resolution of symptoms and was subsequently admitted to the hospital. He is had no subsequent doses of lisinopril, he had no other new medications and presents under these circumstances Related Data Home Medications Medication Instructions Recorded Confirmed aspirin 81 mg tablet,delayed 81 mg PO DAILY 01/22/21 11/30/22 release Previous Rx's Medication Instructions Recorded tadalafil 20 mg tablet See Rx Instructions PO DAILY PRN 08/22/22 sexual activity #30 tabs acetaminophen 500 mg capsule 500 mg PO Q4H PRN Pain, Mild (1-3) 10/23/22 #90 caps amlodipine 5 mg tablet 5 mg PO DAILY #90 tabs 10/30/22 hydrochlorothiazide 25 mg tablet 25 mg PO DAILY #90 tabs 10/30/22 atorvastatin 20 mg tablet 20 mg PO BEDTIME #90 tabs 11/06/22 apixaban 5 mg tablet (Eliquis) 5 mg PO BID #180 tabs 11/07/22 Allergies Allergy/AdvReac Type Severity Reaction Status Date / Time codeine [CODEINE] Allergy Severe PASSED OUT Verified 11/30/22 13:42 lisinopril AdvReac Severe Swelling Verified 11/30/22 13:42 of Lip/Tongue/Throat Review of Systems Review of Systems Narrative: GENERAL: Denies chills, fatigue, malaise, fever, sweats. HEENT: See HPI RESPIRATORY: Denies dyspnea, cough, wheezing, hemoptysis, sputum. CARDIOVASCULAR: Denies chest pain, palpitations, orthopnea, edema, GASTROINTESTINAL: Denies nausea, vomiting, abdominal pain, diarrhea, constipation, melena. : Denies dysuria, frequency, incontinence, hematuria, urinary retention. MUSCULOSKELETAL: denies weakness, joint pain, or bony pain SKIN: Denies rash, skin lesions, or other NEUROLOGIC: Denies weakness, headache, numbness, change in speech, confusion, seizures, incoordination. PSYCHIATRIC: No concerning psychosocial issues. 12 point review of systems is negative except for those stated above Patient History Medical History Cephalgia Cervical spondylosis Chicken pox Chronic back pain COVID-19 virus infection (04/29/22) Erectile dysfunction Essential hypertension (10/02/15) Fractures Herpes zoster ophthalmicus of left eye Heterozygous factor V Leiden mutation (10/02/15) History of deep venous thrombosis (10/02/15) History of Mohs micrographic surgery for skin cancer HTN (hypertension) Measles Mixed hyperlipidemia (10/02/15) Mumps Renal insufficiency SCC (squamous cell carcinoma) (10/15/22) Surgical History Anesthesia History of bunionectomy of left great toe History of bunionectomy of right great toe History of surgery (~01/1999) Hx of colonoscopy No pertinent past surgical history Family History Father History of heart disease Mother Cancer Social History household members: spouse Smoking Status: Former smoker Tobacco: How many years used: 10 quit status: has quit before alcohol intake: current substance use type: does not use Smoking Status: Former smoker alcohol intake frequency: a few times a week Substance Use Type: does not use Exam Narrative Exam Narrative: GENERAL: [67] year old patient appears stated age. Well-developed patient, in mild distress. Voice is affected HEAD: Atraumatic. Normocephalic. EYES: Pupils equal round and reactive. Extraocular motions intact. No scleral icterus. No injection or drainage. ENT: Nose without bleeding, purulent drainage. Left side of tongue with significant swelling, no posterior pharynx swelling, no face or lip swelling Throat without erythema, tonsillar hypertrophy or exudate. Airway patent. NECK: Trachea midline. Non tender CARDIOVASCULAR: Regular rate and rhythm without murmurs, gallops, or rubs. RESPIRATORY: Clear to auscultation. Breath sounds equal bilaterally. No wheezes, rales, or rhonchi. GASTROINTESTINAL: Abdomen soft, non-tender, nondistended. EXTREMITIES: No edema or joint tenderness. BACK: Nontender without deformity or crepitance. No flank tenderness. NEURO: AOx3. SKIN: No rash or erythema of visible areas Initial Vital Signs Initial Vital Signs: Vital Signs Temperature 97.7 F 11/30/22 13:42 Pulse Rate 89 11/30/22 13:42 Respiratory Rate 19 11/30/22 13:42 Blood Pressure 142/85 H 11/30/22 13:42 Pulse Oximetry 96 11/30/22 13:42 Oxygen Delivery Method 11/30/22 13:42 Course Orders Ordered: Acetaminophen (Acetaminophen 325 Mg Tablet) 650 mg PO Q6H PRN PRN Reason: Fever/Mild Pain (1-3) Amlodipine Besylate (Amlodipine 5 Mg Tablet) 5 mg PO DAILY [facility] Apixaban (Apixaban 5 Mg Tablet) 5 mg PO BID [facility] Last Admin: 11/30/22 21:38 Dose: 5 mg Documented By: PRECIOUS Aspirin (Aspirin Ec 81 Mg Tablet) 81 mg PO DAILY [facility] Atorvastatin Calcium (Atorvastatin 20 Mg Tablet) 20 mg PO BEDTIME [facility] Last Admin: 11/30/22 21:38 Dose: 20 mg Documented By: PRECIOUS Hydrochlorothiazide (Hydrochlorothiazide 25 Mg Tablet) 25 mg PO DAILY [facility] Loratadine (Loratadine 10 Mg Tablet) 10 mg PO DAILY [facility] Methylprednisolone (Methylprednisolone 40 Mg/Ml Vial) 40 mg IV Q12HR [facility] Last Admin: 12/01/22 00:44 Dose: 40 mg Documented By: KAREN Naloxone HCl (Naloxone 0.4 Mg/Ml Vial) 0.2 mg IV Q2MIN PRN PRN Reason: Opiate Reversal Ondansetron HCl (Ondansetron 4 Mg/2 Ml Inj) 4 mg IV Q8HR PRN PRN Reason: Nausea And Vomiting Discontinued Medications Dexamethasone (Dexamethasone 10 Mg/Ml Vial) 10 mg IV NOW ONE Stop: 11/30/22 14:08 Last Admin: 11/30/22 14:20 Dose: 10 mg Documented By: PRACHI Diphenhydramine HCl (Diphenhydramine 50 Mg/Ml Vial) 25 mg IV NOW ONE Stop: 11/30/22 14:08 Last Admin: 11/30/22 14:20 Dose: 25 mg Documented By: RL Epinephrine HCl (Epinephrine 1 Mg/Ml) 0.5 mg IM NOW ONE Stop: 11/30/22 14:08 Last Admin: 11/30/22 14:21 Dose: 0.5 mg Documented By: PRACHI Famotidine (Famotidine 20 Mg/2 Ml Vial) 20 mg IV NOW ONE Stop: 11/30/22 14:31 Last Admin: 11/30/22 14:20 Dose: 20 mg Documented By: PRACHI Tranexamic Acid 1,000 mg/ (Sodium Chloride) 100 mls @ 200 mls/hr IV NOW ONE Stop: 11/30/22 14:40 Last Infusion: 11/30/22 15:13 Dose: 0 mls/hr Documented By: Admin: 11/30/22 14:21 Dose: 200 mls/hr Documented By: PRACHI Reevaluation(s) Reevaluation #1: There is some improvement after treatments noted above though still a rather impressive amount of swelling in his tongue Vital Signs Vital signs: Vital Signs - 8 hr 11/30/22 13:42 Temperature 97.7 F Pulse Rate 89 Respiratory Rate 19 Blood Pressure 142/85 H Pulse Oximetry 96 Oxygen Delivery Method Room Air MDM - Allergic Reaction Lab Data Result diagrams: 12/01/22 05:17 12/01/22 05:17 Labs: Lab Results 11/30/22 11/30/22 11/30/22 Range/Units 14:11 14:11 14:11 WBC 9.8 (4.5-11.0) X10^3/uL RBC 4.17 L (4.5-5.9) X10^6/uL Hgb 13.6 (13.5-17.5) g/dL Hct 39.7 L (41-53) % MCV 95.3 (80-100) fL MCH 32.6 (26-34) PG MCHC 34.2 (30-36) % RDW 14.4 (11.6-14.8) % Plt Count 241 (150-400) X10^3/uL Neut % (Auto) 68.4 (50-75) % Lymph % (Auto) 20.6 L (25-40) % [place] % (Auto) 8.5 (3-14) % Eos % (Auto) 1.9 L (2-4) % Baso % (Auto) 0.6 (0-2) % Neut # (Auto) 6700 (7495-5686) /uL Lymph # (Auto) 2000 (6876-8373) /uL [place] # (Auto) 800 (0-900) /uL Eos # (Auto) 200 (0-450) /uL Baso # (Auto) 100 (0-100) /uL Sodium 135 L (137-145) mmol/L Potassium 4.3 (3.4-5.1) mmol/L Chloride 101 (98-107) mmol/L Carbon Dioxide 24 (22-32) mmol/L BUN 33 H (9-20) mg/dL Creatinine 1.00 (0.66-1.25) mg/dL Estimated GFR > 60 (>60) mL/min BUN/Creatinine Ratio 33.0 H (6-22) Glucose 87 (80-110) mg/dL Calcium 8.8 (8.4-10.2) mg/dL Magnesium 1.6 (1.6-2.3) mg/dL Total Creatine Kinase (55-170) U/L CK-MB (CK-2) (<2.37) ng/mL CK-MB (CK-2) Rel Index (1.5-5.0) % Troponin I (0.01-0.034) ng/mL C-Reactive Protein 0.5 (<1.0) mg/dL Lipase 70 (23-300) U/L SARS-CoV-2 (PCR) (Negative) Influenza A (RT-PCR) (NEGATIVE) Influenza B (RT-PCR) (NEGATIVE) RSV (PCR) (Negative) Blood Type O Positive Antibody Screen Negative 11/30/22 11/30/22 Range/Units 14:11 15:11 WBC (4.5-11.0) X10^3/uL RBC (4.5-5.9) X10^6/uL Hgb (13.5-17.5) g/dL Hct (41-53) % MCV (80-100) fL MCH (26-34) PG MCHC (30-36) % RDW (11.6-14.8) % Plt Count (150-400) X10^3/uL Neut % (Auto) (50-75) % Lymph % (Auto) (25-40) % [place] % (Auto) (3-14) % Eos % (Auto) (2-4) % Baso % (Auto) (0-2) % Neut # (Auto) (7589-6127) /uL Lymph # (Auto) (2027-1056) /uL [place] # (Auto) (0-900) /uL Eos # (Auto) (0-450) /uL Baso # (Auto) (0-100) /uL Sodium (137-145) mmol/L Potassium (3.4-5.1) mmol/L Chloride (98-107) mmol/L Carbon Dioxide (22-32) mmol/L BUN (9-20) mg/dL Creatinine (0.66-1.25) mg/dL Estimated GFR (>60) mL/min BUN/Creatinine Ratio (6-22) Glucose (80-110) mg/dL Calcium (8.4-10.2) mg/dL Magnesium (1.6-2.3) mg/dL Total Creatine Kinase 105 (55-170) U/L CK-MB (CK-2) 3.04 H (<2.37) ng/mL CK-MB (CK-2) Rel Index 2.9 (1.5-5.0) % Troponin I < 0.012 (0.01-0.034) ng/mL C-Reactive Protein (<1.0) mg/dL Lipase (23-300) U/L SARS-CoV-2 (PCR) Negative (Negative) Influenza A (RT-PCR) Flu a negative (NEGATIVE) Influenza B (RT-PCR) Flu b negative (NEGATIVE) RSV (PCR) Negative (Negative) Blood Type Antibody Screen MDM Narrative Medical decision making narrative: 67-year-old male presents with impressive swelling and tongue affecting his speech. He denies other symptoms such as shortness of breath, rash, GI symptoms such as nausea, vomiting or diarrhea. He had recent hospitalization for angioedema thought related to lisinopril, at that time his lisinopril was stopped and he has taken no more LEIF inhibitors or arbs. He denies any other obvious potential exposures. He did have some improvement with antihistamine approach, TXA administered for potential bradycardia mediated angioedema. Complement labs obtained but are send outs. Patient requires hospitalization due to potential for airway compromise. Hospitalist happy to accept patient on his service. Patient and understand and agree with diagnosis and plan Discharge Plan Departure Patient Disposition: Admitted as Observation Clinical Impression: Angioedema Admit Date/Time: 11/30/22 16:35 Admit Provider: Gunnar Roper
[2022-11-30 14:20] LABS: Add Manual Diff / Slide Review NO; Basophils Absolute Auto 100 /uL (0-100); Basophils Percent Auto 0.6 % (0-2); Eosinophils Absolute Auto 200 /uL (0-450); Eosinophils Percent Auto 1.9 % (2-4); Hematocrit 39.7 % (41-53); Hemoglobin 13.6 g/dL (13.5-17.5); Lymphocytes Absolute Auto 2000 /uL (1100-4500); Lymphocytes Percent Auto 20.6 % (25-40); Mean Corpuscular HGB Conc 34.2 % (30-36); Mean Corpuscular Hemoglobin 32.6 PG (26-34); Mean Corpuscular Volume 95.3 fL (80-100); Monocytes Absolute Auto 800 /uL (0-900); Monocytes Percent Auto 8.5 % (3-14); Neutrophils Absolute Auto 6700 /uL (1500-7000); Neutrophils Percent Auto 68.4 % (50-75); Platelet Count 241 X10^3/uL (150-400); Red Blood Cell Count 4.17 X10^6/uL (4.5-5.9); Red Cell Distribution Width 14.4 % (11.6-14.8); White Blood Cell Count 9.8 X10^3/uL (4.5-11.0)
[2022-11-30] MEDS: DEXAMETHASONE 10 MG/ML VIAL IV (14:20)
[2022-11-30] MEDS: FAMOTIDINE 20 MG/2 ML VIAL IV (14:20)
[2022-11-30] MEDS: diphenhydrAMINE 50 MG/ML VIAL 25 MG IV (14:20)
[2022-11-30] MEDS: TRANEXAMIC ACID 1,000 MG in SODIUM CHLORIDE 0.9% 100 ML 200 MG IV (14:21)
[2022-11-30] MEDS: EPINEPHrine 1 MG/ML 0.5 MG IM (14:21)
[2022-11-30 14:37] LABS: Creatine Kinase 105 U/L (55-170)
[2022-11-30 14:39] LABS: Blood Urea Nitrogen 33 mg/dL (9-20); C-Reactive Protein Quant 0.5 mg/dL (<1.0); Calcium 8.8 mg/dL (8.4-10.2); Carbon Dioxide 24 mmol/L (22-32); Chloride 101 mmol/L (98-107); Estimated Glomerular Filt Rate > 60 mL/min (>60); Glucose 87 mg/dL (80-110); Lipase 70 U/L (23-300); Magnesium 1.6 mg/dL (1.6-2.3); Potassium 4.3 mmol/L (3.4-5.1); Sodium 135 mmol/L (137-145)
[2022-11-30 14:40] LABS: HEMOLYSIS 51 (0-50)
[2022-11-30 14:48] LABS: Troponin I < 0.012 ng/mL (0.01-0.034)
[2022-11-30 14:52] LABS: CKMB % Relative Index 2.9 % (1.5-5.0); Creatine Kinase MB 3.04 ng/mL (<2.37)
[2022-11-30 16:06] LABS: COVID-19 CEPHEID 4-PLEX PCR Negative (Negative); Influenza A - CEPHEID Flu A NEGATIVE (NEGATIVE); Influenza B - CEPHEID Flu B NEGATIVE (NEGATIVE); Respiratory Syncytial Virus Negative (Negative)
--- NOTE | 2022-11-30 18:14 | PM.HP.1 ---
History of Present Illness History of Present Illness Date Patient Seen: 11/30/22 Time Patient Seen: 18:00 Chief complaint: onset angioedema per pt Narrative: Santhosh Duff is a 67yo M with PMH of DVT secondary to factor 5 Leiden on Eliquis, hypertension, hyperlipidemia, CKD stage 3, and chronic back pain s/p recent spinal surgery who presents with angioedema. He was recently here for the same on 11/28 and was discharged shortly after admission. He developed worsening tongue swelling around 10 am this morning and came back to the ER. He denies any fevers, chills, cough, shortness of breath, palpitations, rash, joint pains, sore throat, or other areas of swelling. In the emergency room he received Benadryl and Solu-Medrol and did not show much improvement, During my interview his tongue swelling had improved but he still had some left-sided tongue swelling. He was admitted for further observation and treatment of angioedema. C1 esterase inhibitor and Complement were sent by the ER provider. COVID, flu, and RSV were negative by PCR. Patient History Medical History Cephalgia Cervical spondylosis Chicken pox Chronic back pain COVID-19 virus infection (04/29/22) Erectile dysfunction Essential hypertension (10/02/15) Fractures Herpes zoster ophthalmicus of left eye Heterozygous factor V Leiden mutation (10/02/15) History of deep venous thrombosis (10/02/15) History of Mohs micrographic surgery for skin cancer HTN (hypertension) Measles Mixed hyperlipidemia (10/02/15) Mumps Renal insufficiency SCC (squamous cell carcinoma) (10/15/22) Surgical History Anesthesia History of bunionectomy of left great toe History of bunionectomy of right great toe History of surgery (~01/1999) Hx of colonoscopy No pertinent past surgical history Family & Social History Family History Father History of heart disease Mother Cancer Social History: household members spouse Prior Living Arrangements House Safety & Behavioral: Feels Safe in Current Yes Environment Tobacco & Substance use: Tobacco type cigarettes Smoking Status Former smoker alcohol intake current alcohol intake frequency a few times a week Substance Use Type does not use Meds Home Medications and Allergies Home Medications Medication Instructions Recorded Confirmed Type aspirin 81 mg tablet,delayed 81 mg PO DAILY 01/22/21 11/30/22 History release tadalafil 20 mg tablet See Rx Instructions PO DAILY PRN 08/22/22 11/30/22 Rx sexual activity #30 tabs acetaminophen 500 mg capsule 500 mg PO Q4H PRN Pain, Mild (1-3) 10/23/22 11/30/22 Rx #90 caps amlodipine 5 mg tablet 5 mg PO DAILY #90 tabs 10/30/22 11/30/22 Rx hydrochlorothiazide 25 mg tablet 25 mg PO DAILY #90 tabs 10/30/22 11/30/22 Rx atorvastatin 20 mg tablet 20 mg PO BEDTIME #90 tabs 11/06/22 11/30/22 Rx apixaban 5 mg tablet (Eliquis) 5 mg PO BID #180 tabs 11/07/22 11/30/22 Rx Allergies Allergy/AdvReac Type Severity Reaction Status Date / Time codeine [CODEINE] Allergy Severe PASSED OUT Verified 11/30/22 13:42 lisinopril AdvReac Severe Swelling Verified 11/30/22 13:42 of Lip/Tongue/Throat Review of Systems Review of Systems Narrative: All other systems reviewed with the patient and are negative unless otherwise stated. Exam Vital Signs (past 8 hours): - 11/30/22 13:42 11/30/22 13:59 11/30/22 14:00 Temperature 97.7 F Pulse Rate 89 83 81 Respiratory Rate 19 20 19 Blood Pressure 142/85 H Pulse Oximetry 96 97 96 Oxygen Delivery Method Room Air 11/30/22 14:02 11/30/22 14:02 11/30/22 14:16 Temperature Pulse Rate 81 80 Respiratory Rate 16 22 Blood Pressure 144/86 H Pulse Oximetry 96 96 Oxygen Delivery Method 11/30/22 14:16 11/30/22 14:30 11/30/22 14:30 Temperature Pulse Rate 83 Respiratory Rate 20 Blood Pressure 129/78 134/75 Pulse Oximetry 96 Oxygen Delivery Method 11/30/22 14:45 11/30/22 14:45 11/30/22 15:00 Temperature Pulse Rate 82 Respiratory Rate 22 Blood Pressure 139/68 140/69 Pulse Oximetry 97 Oxygen Delivery Method 11/30/22 15:00 11/30/22 15:15 11/30/22 15:15 Temperature Pulse Rate 89 94 H Respiratory Rate 23 21 Blood Pressure 145/71 H Pulse Oximetry 95 94 Oxygen Delivery Method 11/30/22 15:30 11/30/22 15:30 11/30/22 15:45 Temperature Pulse Rate 101 H Respiratory Rate 21 Blood Pressure 145/68 H 141/67 H Pulse Oximetry 91 Oxygen Delivery Method 11/30/22 15:45 11/30/22 16:00 11/30/22 16:00 Temperature Pulse Rate 101 H 100 H Respiratory Rate 23 23 Blood Pressure 130/65 Pulse Oximetry 91 91 Oxygen Delivery Method 11/30/22 16:15 11/30/22 16:15 11/30/22 16:30 Temperature Pulse Rate 101 H Respiratory Rate 19 Blood Pressure 139/70 147/76 H Pulse Oximetry 89 L Oxygen Delivery Method 11/30/22 16:30 11/30/22 16:45 11/30/22 16:45 Temperature Pulse Rate 98 H 94 H Respiratory Rate 22 24 Blood Pressure 132/72 Pulse Oximetry 92 93 Oxygen Delivery Method 11/30/22 17:00 11/30/22 17:00 11/30/22 17:15 Temperature Pulse Rate 91 H Respiratory Rate 25 H Blood Pressure 135/77 139/86 Pulse Oximetry 93 Oxygen Delivery Method 11/30/22 17:15 11/30/22 17:30 11/30/22 17:30 Temperature Pulse Rate 88 86 Respiratory Rate 25 H 20 Blood Pressure 138/87 Pulse Oximetry 93 93 Oxygen Delivery Method Oxygen Delivery Method Room Air Narrative Exam Narrative: GEN: no acute distress HEENT: moist mucous membranes, PERRL, no significant lip swelling but L half of his tongue is enlarged. NECK: trachea midline, no JVD CV: regular rate and rhythm, no murmurs PULM: clear bilaterally ABD: soft, nontender, nondistended, no organomegaly EXT: warm and well perfused with no edema NEURO: awake, alert, oriented, no focal deficits Objective Labs Result Diagrams: 11/30/22 14:11 11/30/22 14:11 Labs: Laboratory Results - last 24 hr 11/30/22 11/30/22 11/30/22 14:11 14:11 14:11 WBC 9.8 RBC 4.17 L Hgb 13.6 Hct 39.7 L MCV 95.3 MCH 32.6 MCHC 34.2 RDW 14.4 Plt Count 241 Neut % (Auto) 68.4 Lymph % (Auto) 20.6 L [place] % (Auto) 8.5 Eos % (Auto) 1.9 L Baso % (Auto) 0.6 Neut # (Auto) 6700 Lymph # (Auto) 2000 [place] # (Auto) 800 Eos # (Auto) 200 Baso # (Auto) 100 Sodium 135 L Potassium 4.3 Chloride 101 Carbon Dioxide 24 BUN 33 H Creatinine 1.00 Estimated GFR > 60 BUN/Creatinine Ratio 33.0 H Glucose 87 Calcium 8.8 Magnesium 1.6 Total Creatine Kinase CK-MB (CK-2) CK-MB (CK-2) Rel Index Troponin I C-Reactive Protein 0.5 Lipase 70 SARS-CoV-2 (PCR) Influenza A (RT-PCR) Influenza B (RT-PCR) RSV (PCR) Blood Type O Positive Antibody Screen Negative 11/30/22 11/30/22 14:11 15:11 WBC RBC Hgb Hct MCV MCH MCHC RDW Plt Count Neut % (Auto) Lymph % (Auto) [place] % (Auto) Eos % (Auto) Baso % (Auto) Neut # (Auto) Lymph # (Auto) [place] # (Auto) Eos # (Auto) Baso # (Auto) Sodium Potassium Chloride Carbon Dioxide BUN Creatinine Estimated GFR BUN/Creatinine Ratio Glucose Calcium Magnesium Total Creatine Kinase 105 CK-MB (CK-2) 3.04 H CK-MB (CK-2) Rel Index 2.9 Troponin I < 0.012 C-Reactive Protein Lipase SARS-CoV-2 (PCR) Negative Influenza A (RT-PCR) Flu a negative Influenza B (RT-PCR) Flu b negative RSV (PCR) Negative Blood Type Antibody Screen Assessment & Plan Assessment & Plan narrative: # acute angioedema secondary to LEIF inhibitor -recently discharged for angioedema, recurred with tongue swelling. Now improved again with solumedrol and benadryl in the ER but has residual L sided tongue swelling. -monitor overnight. No significant reason for infection. No signs on exam for masses or external compression or other possible etiology. -if stable tomorrow, can likely discharge home tomorrow with prednisone taper and daily anti-histamine. -continue solumedrol for now, start daily antihistamine with loratadine. -case discussed with ER provider, records from recent hospitalization were also reviewed. # HTN, chronic -continue amlodipine, and HCTZ # hyperlipidemia, chronic -continue home statin # history of DVT secondary to factor 5 Leiden -continue home Eliquis Code status is full code. COVID negative. DVT prophylaxis with Eliquis. Proxy is Shyla. Dispo: admit observation, probable discharge home in the morning. Has follow up next week already scheduled with PCP. I have reviewed home meds and used all available resources to reconcile the home meds. This patient will be admitted as observation and will require less than 2 midnights of hospital time to treat angioedema. COVID-19 COVID-19 status: Negative Time Spent With Patient Critical Care time: I spent a total of [] minutes of critical care time on this patient's care today; this time is exclusive of procedural time. Quality VTE Deep Vein Thrombosis/Pulmonary Embolism Present on Admission: No MIPS - Admit I confirm the patient?s Advance Care Plan is present, Code status is documented, Surrogate decision maker is in patient?s record [If Yes, STOP here]: Yes
[2022-11-30] MEDS: APIXABAN 5 MG TABLET PO (21:38)
[2022-11-30] MEDS: ATORVASTATIN 20 MG TABLET PO (21:38)
[2022-12-01 03:25] VITALS: BP 137/92; PULSE 76; RESP 18; TEMP 36.7; O2SAT 96
[2022-12-01 05:34] LABS: Add Manual Diff / Slide Review NO; Basophils Absolute Auto 0 /uL (0-100); Basophils Percent Auto 0.5 % (0-2); Eosinophils Absolute Auto 0 /uL (0-450); Hematocrit 40.7 % (41-53); Hemoglobin 13.9 g/dL (13.5-17.5); Lymphocytes Absolute Auto 500 /uL (1100-4500); Lymphocytes Percent Auto 7.4 % (25-40); Mean Corpuscular HGB Conc 34.2 % (30-36); Mean Corpuscular Hemoglobin 32.7 PG (26-34); Mean Corpuscular Volume 95.5 fL (80-100); Monocytes Absolute Auto 100 /uL (0-900); Monocytes Percent Auto 1.6 % (3-14); Neutrophils Absolute Auto 5600 /uL (1500-7000); Neutrophils Percent Auto 90.5 % (50-75); Platelet Count 239 X10^3/uL (150-400); Red Blood Cell Count 4.26 X10^6/uL (4.5-5.9); Red Cell Distribution Width 14.1 % (11.6-14.8); White Blood Cell Count 6.1 X10^3/uL (4.5-11.0)
[2022-12-01 06:01] LABS: BUN Creatinine Ratio 31.6 (6-22); Blood Urea Nitrogen 31 mg/dL (9-20); Calcium 8.7 mg/dL (8.4-10.2); Carbon Dioxide 24 mmol/L (22-32); Chloride 100 mmol/L (98-107); Estimated Glomerular Filt Rate > 60 mL/min (>60); Glucose 145 mg/dL (80-110); HEMOLYSIS < 15 (0-50); Magnesium 1.7 mg/dL (1.6-2.3); Potassium 4.5 mmol/L (3.4-5.1); Sodium 133 mmol/L (137-145)
[2022-12-01 07:00] VITALS: BP 125/87; PULSE 73; RESP 16; TEMP 36.7; O2SAT 94
[2022-12-01] MEDS: MAGNESIUM CHLORIDE 64 MG TABLET 128 MG PO (08:36)
[2022-12-01] MEDS: LORATADINE 10 MG TABLET PO (08:36)
[2022-12-01] MEDS: APIXABAN 5 MG TABLET PO (08:36)
[2022-12-01] MEDS: hydroCHLOROthiazide 25 MG TABLET PO (08:36)
[2022-12-01] MEDS: ASPIRIN EC 81 MG TABLET PO (08:36)
[2022-12-01] MEDS: AMLODIPINE 5 MG TABLET PO (08:36)
--- NOTE | 2022-12-01 08:59 | P.DS_ITS ---
History of Present Illness History of Present Illness Date Patient Seen: 12/01/22 Time Patient Seen: 08:59 Chief complaint: onset angioedema per pt Narrative: Santhosh Duff is a 67yo M with PMH of DVT secondary to factor 5 Leiden on Eliquis, hypertension, hyperlipidemia, CKD stage 3, and chronic back pain s/p recent spinal surgery who presents with angioedema. He was recently here for the same on 11/28 and was discharged shortly after admission. He developed worsening tongue swelling around 10 am this morning and came back to the ER. He denies any fevers, chills, cough, shortness of breath, palpitations, rash, joint pains, sore throat, or other areas of swelling. In the emergency room he received Benadryl and Solu-Medrol and did not show much improvement, During my interview his tongue swelling had improved but he still had some left-sided tongue swelling. He was admitted for further observation and treatment of angioedema. C1 esterase inhibitor and Complement were sent by the ER provider. COVID, flu, and RSV were negative by PCR. Discharge Providers Provider Date of admission: 11/30/22 16:35 Discharge Date: 12/01/22 Primary care physician: Adonis Boone DO Discharge provider: Gunnar Roper DO Summary Hospital Course Discharge Diagnosis: # acute angioedema secondary to DINESH inhibitor # HTN, chronic # hyperlipidemia, chronic # history of DVT secondary to factor 5 Leiden Hospital Course: Santhosh Duff is a 67yo M with PMH of DVT secondary to factor 5 Leiden on Eliquis, hypertension, hyperlipidemia, CKD stage 3, and chronic back pain s/p recent spinal surgery who presented with angioedema after a recent discharge for the same a few days prior. He presented initially with left-sided tongue swelling, that was slow to improve but by the following morning his tongue size had improved to normal. He was treated here with antihistamines and steroids. Given improvement, he was discharged home the following morning to complete a prednisone taper and I also recommended daily antihistamine at home. He has planned follow-up with his primary care provider this week. Dinesh inhibitor had been discontinued during his prior admission and no other changes to his home medications are recommended at this time. Time Spent with Patient Time spent: Less than 30 minutes Exam Vital Signs (past 8 hours): - 12/01/22 03:25 12/01/22 07:00 Temperature 98.1 F 98.0 F Pulse Rate 76 73 Respiratory Rate 18 16 Blood Pressure 137/92 H 125/87 Pulse Oximetry 96 94 Oxygen Flow Rate 0 0 Oxygen Delivery Method Room Air Oxygen Flow Rate 0 Narrative Exam Narrative: GEN: no acute distress HEENT: moist mucous membranes, PERRL, tongue swelling markedly improved and near normal. NECK: trachea midline, no JVD CV: regular rate and rhythm EXT: warm and well perfused with no edema NEURO: awake, alert, oriented, no focal deficits Objective Labs Result Diagrams: 12/01/22 05:17 12/01/22 05:17 Labs: Laboratory Results - last 24 hr 11/30/22 11/30/22 11/30/22 14:11 14:11 14:11 WBC 9.8 RBC 4.17 L Hgb 13.6 Hct 39.7 L MCV 95.3 MCH 32.6 MCHC 34.2 RDW 14.4 Plt Count 241 Neut % (Auto) 68.4 Lymph % (Auto) 20.6 L [place] % (Auto) 8.5 Eos % (Auto) 1.9 L Baso % (Auto) 0.6 Neut # (Auto) 6700 Lymph # (Auto) 2000 [place] # (Auto) 800 Eos # (Auto) 200 Baso # (Auto) 100 Sodium 135 L Potassium 4.3 Chloride 101 Carbon Dioxide 24 BUN 33 H Creatinine 1.00 Estimated GFR > 60 BUN/Creatinine Ratio 33.0 H Glucose 87 Calcium 8.8 Magnesium 1.6 Total Creatine Kinase CK-MB (CK-2) CK-MB (CK-2) Rel Index Troponin I C-Reactive Protein 0.5 Lipase 70 SARS-CoV-2 (PCR) Influenza A (RT-PCR) Influenza B (RT-PCR) RSV (PCR) Blood Type O Positive Antibody Screen Negative 11/30/22 11/30/22 12/01/22 14:11 15:11 05:17 WBC 6.1 RBC 4.26 L Hgb 13.9 Hct 40.7 L MCV 95.5 MCH 32.7 MCHC 34.2 RDW 14.1 Plt Count 239 Neut % (Auto) 90.5 H D Lymph % (Auto) 7.4 L [place] % (Auto) 1.6 L Eos % (Auto) 0.0 L Baso % (Auto) 0.5 Neut # (Auto) 5600 Lymph # (Auto) 500 L [place] # (Auto) 100 Eos # (Auto) 0 Baso # (Auto) 0 Sodium Potassium Chloride Carbon Dioxide BUN Creatinine Estimated GFR BUN/Creatinine Ratio Glucose Calcium Magnesium Total Creatine Kinase 105 CK-MB (CK-2) 3.04 H CK-MB (CK-2) Rel Index 2.9 Troponin I < 0.012 C-Reactive Protein Lipase SARS-CoV-2 (PCR) Negative Influenza A (RT-PCR) Flu a negative Influenza B (RT-PCR) Flu b negative RSV (PCR) Negative Blood Type Antibody Screen 12/01/22 05:17 WBC RBC Hgb Hct MCV MCH MCHC RDW Plt Count Neut % (Auto) Lymph % (Auto) [place] % (Auto) Eos % (Auto) Baso % (Auto) Neut # (Auto) Lymph # (Auto) [place] # (Auto) Eos # (Auto) Baso # (Auto) Sodium 133 L Potassium 4.5 Chloride 100 Carbon Dioxide 24 BUN 31 H Creatinine 0.98 Estimated GFR > 60 BUN/Creatinine Ratio 31.6 H Glucose 145 H Calcium 8.7 Magnesium 1.7 Total Creatine Kinase CK-MB (CK-2) CK-MB (CK-2) Rel Index Troponin I C-Reactive Protein Lipase SARS-CoV-2 (PCR) Influenza A (RT-PCR) Influenza B (RT-PCR) RSV (PCR) Blood Type Antibody Screen [facility] Medical History Cephalgia Cervical spondylosis Chicken pox Chronic back pain COVID-19 virus infection (04/29/22) Erectile dysfunction Essential hypertension (10/02/15) Fractures Herpes zoster ophthalmicus of left eye Heterozygous factor V Leiden mutation (10/02/15) History of deep venous thrombosis (10/02/15) History of Mohs micrographic surgery for skin cancer HTN (hypertension) Measles Mixed hyperlipidemia (10/02/15) Mumps Renal insufficiency SCC (squamous cell carcinoma) (10/15/22) Surgical History Anesthesia History of bunionectomy of left great toe History of bunionectomy of right great toe History of surgery (~01/1999) Hx of colonoscopy No pertinent past surgical history Family History Father History of heart disease Mother Cancer Social History household members: spouse Smoking Status: Former smoker Tobacco: How many years used: 10 quit status: has quit before alcohol intake: current substance use type: does not use Discharge Plan Discharge Plan Patient Disposition: Home Provider Discharge Comment: You were admitted to the hospital with angioedema, improved with steroids. Continue steroid taper at home over the next week as prescribed. Also recommend daily antihistamine like zyrtec or macario for the next week as well. Follow up with PCP as already scheduled this week. Discharge orders & Medications Prescriptions: New prednisone 20 mg tablet See Rx Instructions .ROUTE .COMPLEX Qty: 13 0RF Rx Instructions: 60 mg daily for 2 days, 40 mg daily for 2 days, 20 mg daily for 2 days, 10 mg daily for 2 days. Continued tadalafil 20 mg tablet See Rx Instructions PO DAILY PRN (Reason: sexual activity) Qty: 30 3RF Label Comments: several weeks ago Rx Instructions: 0.5-1 tab (10-20mg) orally daily PRN; hydrochlorothiazide 25 mg tablet 25 mg PO DAILY Qty: 90 2RF amlodipine 5 mg tablet 5 mg PO DAILY Qty: 90 2RF atorvastatin 20 mg tablet 20 mg PO BEDTIME Qty: 90 1RF Eliquis 5 mg tablet 5 mg PO BID Qty: 180 0RF aspirin 81 mg tablet,delayed release (DR/EC) 81 mg PO DAILY acetaminophen 500 mg capsule 500 mg PO Q4H MDD Max 3000 mg per day PRN (Reason: Pain, Mild (1-3)) Qty: 90 0RF Follow up/Referrals: Adonis Boone DO [Primary Care Provider] - Discharge Health Status Multidrug resistant organism: No MDRO Diet/Activity/Treatments Diet: Diet as Tolerated Activity: As tolerated Visit Report/Discharge Packet Instructions: Angioedema, DI for Angioedema, DI for Prescription Opioid Use Stand Alone Forms: Congestive Heart Failure, Patient Portal/API, Stroke Signs & Symptoms Discharge Data Primary Care Provider: Adonis Boone Attending Provider: Gunnar Roper VTE Deep Vein Thrombosis/Pulmonary Embolism Present on Admission: No
[2022-12-04 11:49] LABS: C1 Esterase Inhibitor, Func >93 (.)
== END 2022-12-01 09:25 | disposition home or self-care (01) ==
LOC: ED 16:34 → AC 16:36
PROVIDERS: Admitting Provider Internal Medicine; Emergency Provider Emergency Medicine; PCP Family Medicine; Referring Provider Emergency Medicine; Visit Provider Internal Medicine
DX: T78.3XXA Angioneurotic edema, initial encounter (principal); T50.905A Adverse effect of unspecified drugs, medicaments and biological substances, initial encounter; D68.51 Activated protein C resistance; Z86.718 Personal history of other venous thrombosis and embolism; Z79.01 Long term (current) use of anticoagulants; E78.5 Hyperlipidemia, unspecified; I12.9 Hypertensive chronic kidney disease with stage 1 through stage 4 chronic kidney disease, or unspecified chronic kidney disease; N18.30 Chronic kidney disease, stage 3 unspecified; Z20.822 Contact with and (suspected) exposure to COVID-19
CPT/HCPCS: 0241U; 36415; 80048; 82550; 82553; 83520; 83690; 83735; 84484; 85025; 86140; 86160; 86161; 86850; 86900; 86901; 96365; 96372; 96375; 99284; G0378; J0171; J1100; J1200; J2920

== ENCOUNTER → 2023-03-14 15:00 | Outpatient (CLI) | payer BC, OTHER, SELFPAY ==
[2022-11-30 18:09] VITALS: BMI 33.9
--- NOTE | 2023-03-14 15:03 | DI.CT.S_ITS ---
PROCEDURE: CT LUMBAR SPINE WO CON INDICATIONS: Spinal stenosis, lumbar region TECHNIQUE: Noncontrast 3 mm thick sections acquired from the T12 level to the sacrum. Sagittal and coronal reformats were constructed. For radiation dose reduction, the following was used: automated exposure control. COMPARISON: [facility], CT, CT LUMBAR SPINE WO CON, 08/28/2022, 10:12. FINDINGS: Image quality: Excellent. Bones: Convex right scoliosis, centered at L1-2, Hardy angle of 26 degrees. Interval posterior surgical fusion at L4 through S1. 1.4 centimeter anterolisthesis of L5 on S1 secondary to pars defects, stable from prior. Stable mild vertebral body height loss at L1. T12-L1: Moderate disc height loss. Bridging endplate osteophytes. No significant spinal canal or neural foraminal narrowing. L1-L2: Moderate disc height loss. Mild facet arthrosis. Moderate bilateral neural foraminal narrowing. L2-L3: Moderate disc height loss. Broad-based disc bulge. Mild facet arthrosis. Moderate bilateral neural foraminal narrowing. L3-L4: Mild disc height loss. Broad-based disc bulge. Moderate facet arthrosis. Moderate bilateral neural foraminal narrowing. Moderate spinal canal narrowing. L4-L5: Moderate disc height loss, with interbody spacer present. Broad-based disc bulge. Moderate right and mild left neural foraminal narrowing. L5-S1: Interval right-sided hemilaminectomy. Severe disc height loss, with interbody spacer present. Moderate left and mild right neural foraminal narrowing. Soft tissues: No retroperitoneal masses or hematomas. Visualized aorta is normal in caliber. Colonic diverticulosis without evidence of diverticulitis. IMPRESSION: Interval posterior and interbody surgical fusion at L4 through S1, without hardware complication. Stable 14 millimeter anterolisthesis of L5 on S1, secondary to pars defects. Multilevel degenerative disc disease and facet arthrosis, as above. Dictated by: Dandre Huber M.D. on 03/14/2023 at 16:34 Approved by: Dandre Huber M.D. on 03/14/2023 at 16:44
== END ==
PROVIDERS: PCP Family Medicine; Referring Provider Orthopaedic Surgery Orthopaedic Surgery of the Spine; Visit Provider Orthopaedic Surgery Orthopaedic Surgery of the Spine
DX: M48.062 Spinal stenosis, lumbar region with neurogenic claudication (principal); M47.816 Spondylosis without myelopathy or radiculopathy, lumbar region; M51.36 Other intervertebral disc degeneration, lumbar region; M43.17 Spondylolisthesis, lumbosacral region; Z98.1 Arthrodesis status
CPT/HCPCS: 72131

== ENCOUNTER → 2023-09-20 09:24 | Outpatient (CLI) | payer MEDICARE, OTHER, SELFPAY ==
[2022-11-30 18:09] VITALS: BMI 33.9
--- NOTE | 2023-09-20 09:31 | DI.CT.S_ITS ---
PROCEDURE: CT CHEST HIGH RESOLUTION INDICATIONS: Severe left lung volume loss and hemidiaphragm elevation TECHNIQUE: Noncontrast 1.0 and 5.0 mm thick contiguous axial sections from the pulmonary apex to the posterior costophrenic angles, with 7 mm thick coronal and sagittal MIP reformats. 1 mm thick dynamic expiratory images acquired through the upper, mid, and lower lungs. 1.0 mm thick axial sections acquired from the foster to the posterior costophrenic angles in the prone end-inspiration position. For radiation dose reduction, the following was used: automated exposure control, adjustment of mA and/or kV according to patient size. COMPARISON: [facility], CR, XR LUMBAR SPINE 2-3V, 10/15/2021, 9:38. [facility], CR, XR CHEST 1V, 10/23/2022, 8:54. [facility], CR, XR CHEST 1V, 05/16/2020, 16:26. [facility], CR, CHEST 2 VIEW, 02/16/2014, 9:35. FINDINGS: Image quality: Excellent. Lungs: Platelike atelectasis is present at the bilateral lung bases. This is partially resolved on the prone inspire a Paul sequences. However, volume loss, atelectasis and mild bronchiectasis persists at the left lung base. There is marked elevation of the left hemidiaphragm. No air trapping on expiratory views. No pulmonary nodules. No ground-glass radiopacities. Pleura: No pleural effusions or pneumothorax. Mediastinum: Heart size is normal. No pericardial effusion. Thoracic aorta and central pulmonary arteries are normal in size. Esophagus is normal in caliber. Bones and chest wall: No suspicious bony lesions. No vertebral body compression fractures. Abdomen: A laparoscopic gastric band is noted. Visualized upper abdominal solid organs and bowel loops appear normal. IMPRESSION: 1. Marked elevation of the left hemidiaphragm and either pulmonary scarring at the left lung base with consolidation or compressive atelectasis. Findings raise the suspicion for paralysis of the left hemidiaphragm. If further characterization is warranted, a sniff test could be performed. It is unclear if the laparoscopic gastric band may be involved in the diaphragmatic abnormality. 2. Mild platelike atelectasis at the right lung base. 3. No findings to suggest air trapping or pneumonitis. Dictated by: Raisa Hickman M.D. on 09/21/2023 at 17:10 Approved by: Raisa Hickman M.D. on 09/21/2023 at 17:17
== END ==
PROVIDERS: PCP Family Medicine; Referring Provider Internal Medicine Critical Care Medicine; Visit Provider Internal Medicine Critical Care Medicine
DX: J98.6 Disorders of diaphragm (principal); J98.11 Atelectasis
CPT/HCPCS: 71250

== ENCOUNTER → 2023-11-28 08:37 | Outpatient (CLI) | payer MEDICARE, OTHER, SELFPAY ==
[2022-11-30 18:09] VITALS: BMI 33.9
--- NOTE | 2023-11-28 08:39 | DI.US.S_ITS ---
PROCEDURE: US CAROTID DOPPLER BI INDICATIONS: LEFT CAROTID ARTERY STENOSIS TECHNIQUE: Color and pulse Doppler interrogation was performed of both carotid systems, with image documentation and velocity measurements. COMPARISON: None. FINDINGS: Stenosis calculations are based on SRU (Society of Radiologists in Ultrasound) criteria. Right side: Brachial blood pressure: 132/86 mm Hg. Common carotid artery peak systolic velocity: 99 cm/sec. Internal carotid artery peak systolic velocity: 69 cm/sec. Internal carotid artery end diastolic velocity: 26 cm/sec. External carotid artery peak systolic velocity: 89 cm/sec. ICA/CCA peak systolic ratio: 0.7. Juares scale imaging description: Mild atherosclerotic plaques are noted involving proximal right internal carotid artery. Percent internal carotid artery stenosis: Less than 50 percent. Vertebral artery: Flow direction is antegrade. Left side: Brachial blood pressure: 117/78 mm Hg. Common carotid artery peak systolic velocity: 95 cm/sec. Internal carotid artery peak systolic velocity: 76 cm/sec. Internal carotid artery end diastolic velocity: 31 cm/sec. External carotid artery peak systolic velocity: 80 cm/sec. ICA/CCA peak systolic ratio: 0.8. Juares scale imaging description: Moderate amount of plaques are noted involving distal common carotid artery/carotid bulb. Percent internal carotid artery stenosis: Less than 50 percent. Vertebral artery: Flow direction is antegrade. IMPRESSION: Less than 50 percent stenosis involving bilateral proximal internal carotid arteries. Dictated by: Juan R Singh M.D. on 12/02/2023 at 16:55 Approved by: Juan R Singh M.D. on 12/02/2023 at 16:56
[2023-11-28 09:54] LABS: Add Manual Diff / Slide Review NO; Basophils Absolute Auto 0 /uL (0-100); Basophils Percent Auto 0.4 % (0-2); Eosinophils Absolute Auto 300 /uL (0-450); Eosinophils Percent Auto 4.1 % (2-4); Hematocrit 45.8 % (41-53); Hemoglobin 15.5 g/dL (13.5-17.5); Lymphocytes Absolute Auto 2100 /uL (1100-4500); Lymphocytes Percent Auto 28.2 % (25-40); Mean Corpuscular HGB Conc 33.7 % (30-36); Mean Corpuscular Hemoglobin 32.4 PG (26-34); Mean Corpuscular Volume 96.1 fL (80-100); Monocytes Absolute Auto 700 /uL (0-900); Monocytes Percent Auto 9.3 % (3-14); Neutrophils Absolute Auto 4300 /uL (1500-7000); Platelet Count 227 X10^3/uL (150-400); Red Blood Cell Count 4.77 X10^6/uL (4.5-5.9); Red Cell Distribution Width 14.5 % (11.6-14.8); White Blood Cell Count 7.4 X10^3/uL (4.5-11.0)
[2023-11-28 10:00] LABS: Hemoglobin A1C% w Est Avg Glu 5.8 % (4.0-6.0)
[2023-11-28 10:07] LABS: HEMOLYSIS < 15 (0-50); Iron 118 ug/dL (49-181)
[2023-11-28 10:18] LABS: Percent Iron Saturation 37 % (20-50); Total Iron Binding Capacity 317 ug/dL (261-462); Transferrin 271 mg/dL (206-381)
[2023-11-28 10:56] LABS: Vitamin B12 321 pg/mL (239-931)
== END ==
PROVIDERS: PCP Family Medicine; Referring Provider Family Medicine; Visit Provider Family Medicine
DX: I65.23 Occlusion and stenosis of bilateral carotid arteries (principal); D64.9 Anemia, unspecified; R73.03 Prediabetes; E78.2 Mixed hyperlipidemia; I10 Essential (primary) hypertension
CPT/HCPCS: 36415; 82607; 83036; 83540; 83550; 85025; 93880

== ENCOUNTER → 2025-01-26 07:08 | Outpatient (CLI) | payer MEDICARE, OTHER, SELFPAY ==
[2022-11-30 18:09] VITALS: BMI 33.9
[2025-01-26 07:48] LABS: Add Manual Diff / Slide Review NO; Basophils Absolute Auto 100 /uL (0-100); Basophils Percent Auto 0.7 % (0-2); Eosinophils Absolute Auto 100 /uL (0-450); Eosinophils Percent Auto 1.9 % (2-4); Hematocrit 45.3 % (41-53); Hemoglobin 15.3 g/dL (13.5-17.5); Lymphocytes Absolute Auto 2000 /uL (1100-4500); Lymphocytes Percent Auto 26.5 % (25-40); Mean Corpuscular HGB Conc 33.7 % (30-36); Mean Corpuscular Hemoglobin 32.3 PG (26-34); Mean Corpuscular Volume 95.8 fL (80-100); Monocytes Absolute Auto 600 /uL (0-900); Monocytes Percent Auto 7.4 % (3-14); Neutrophils Absolute Auto 4900 /uL (1500-7000); Neutrophils Percent Auto 63.5 % (50-75); Platelet Count 270 X10^3/uL (150-400); Red Blood Cell Count 4.73 X10^6/uL (4.5-5.9); Red Cell Distribution Width 13.8 % (11.6-14.8); White Blood Cell Count 7.7 X10^3/uL (4.5-11.0)
[2025-01-26 07:55] LABS: Hemoglobin A1C% w Est Avg Glu 5.8 % (4.0-6.0)
[2025-01-26 08:04] LABS: Alanine Aminotransferase 28 IU/L (<50); Albumin 4.1 g/dL (3.5-5.0); Albumin Globulin Ratio 1.5 (1.0-2.8); Alkaline Phosphatase 116 U/L (38-126); Aspartate Aminotransferase 32 IU/L (17-59); BUN Creatinine Ratio 15.9 (6-22); Bilirubin Total 0.5 mg/dL (0.2-1.3); Blood Urea Nitrogen 20 mg/dL (9-20); Calcium 9.4 mg/dL (8.4-10.2); Carbon Dioxide 33 mmol/L (22-32); Chloride 99 mmol/L (98-107); Cholesterol 171 mg/dL (140-199); Estimated Glomerular Filt Rate > 60 mL/min (>60); Globulin 2.7 g/dL (1.7-4.1); Glucose 95 mg/dL (80-110); HDL Cholesterol 49 mg/dL (40-60); HEMOLYSIS < 15 (0-50); LDL Cholesterol Calculated 91 mg/dL (<100); Potassium 4.4 mmol/L (3.4-5.1); Sodium 138 mmol/L (137-145); Total Protein 6.8 g/dL (6.3-8.2); Triglycerides 156 mg/dL (35-150)
[2025-01-26 08:32] LABS: TSH w/ Reflex to FT4 1.39 uIU/mL (0.47-4.68)
[2025-01-26 08:36] LABS: Prostate Specific Antigen Scrn 0.782 ng/mL (0.1-4.0)
== END ==
PROVIDERS: PCP Family Medicine; Referring Provider Family Medicine; Visit Provider Family Medicine
DX: E78.2 Mixed hyperlipidemia (principal); R73.03 Prediabetes; Z12.5 Encounter for screening for malignant neoplasm of prostate; I10 Essential (primary) hypertension; T78.3XXA Angioneurotic edema, initial encounter; N28.9 Disorder of kidney and ureter, unspecified; I65.29 Occlusion and stenosis of unspecified carotid artery
CPT/HCPCS: 36415; 80053; 80061; 83036; 84443; 85025; G0103

== ENCOUNTER → 2025-05-12 14:44 | Outpatient (CLI) | payer MEDICARE, OTHER, SELFPAY ==
[2022-11-30 18:09] VITALS: BMI 33.9
== END ==
PROVIDERS: PCP Family Medicine; Referring Provider Family Medicine; Visit Provider Internal Medicine Critical Care Medicine
DX: J98.6 Disorders of diaphragm (principal); Z87.891 Personal history of nicotine dependence; R94.2 Abnormal results of pulmonary function studies
CPT/HCPCS: 94060; 94726; 94729

== ENCOUNTER → 2025-05-13 10:12 | Outpatient (CLI) | payer MEDICARE, OTHER, SELFPAY ==
[2022-11-30 18:09] VITALS: BMI 33.9
--- NOTE | 2025-05-13 10:18 | DI.RAD.S_ITS ---
PROCEDURE: FL FLUOROSCOPY >1HR COMPARISON: None. 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 Dictated by: Dandre Huber M.D. on 05/17/2025 at 10:19 Approved by: Dandre Huber M.D. on 05/17/2025 at 10:20
== END ==
PROVIDERS: PCP Family Medicine; Visit Provider Internal Medicine Critical Care Medicine
DX: J98.6 Disorders of diaphragm (principal)
CPT/HCPCS: 76000

== ENCOUNTER 2025-09-24 18:24 | Emergency (ER) | payer MEDICARE, OTHER, SELFPAY ==
[2022-11-30 18:09] VITALS: BMI 33.9
--- NOTE | 2025-09-24 18:33 | ED_ITS ---
HPI - Wound/Laceration
--- NOTE | 2025-09-24 18:33 | ED.WOUNDLAC ---
HPI - Wound/Laceration General Chief Complaint: Extremity Injury, Lower Stated Complaint: RT LEG INJURY Time Seen by Provider: 09/24/25 18:28 History of Present Illness HPI narrative: 70-year-old male with past medical history of factor 5 Leiden mutation on Eliquis presents with a laceration over his right lower nj area from a knife that fell from the kitchen counter. He is not in any pain nor does he describe any neurological issues at this time. Related Data Home Medications ?Medication ?Instructions ?Recorded ?Confirmed aspirin 81 mg tablet,delayed 81 mg PO DAILY 01/22/21 06/07/25 release cetirizine [Zyrtec] PO 01/21/25 06/07/25 Previous Rx's ?Medication ?Instructions ?Recorded tadalafil 20 mg tablet See Rx Instructions PO DAILY PRN 08/22/22 sexual activity #30 tabs apixaban 5 mg tablet (Eliquis) See Rx Instructions .Route 12/31/24 .COMPLEX #180 tabs metoprolol succinate 25 mg 25 mg PO DAILY #90 tabs 12/31/24 tablet,extended release 24 hr atorvastatin 20 mg tablet See Rx Instructions .Route 01/04/25 .COMPLEX #90 tabs amlodipine 5 mg tablet 5 mg PO DAILY #90 tabs 04/01/25 hydrochlorothiazide 25 mg tablet 25 mg PO DAILY #90 tabs 05/05/25 Allergies Allergy/AdvReac Type Severity Reaction Status Date / Time codeine (CODEINE) Allergy Severe PASSED OUT Verified 09/24/25 18:39 lisinopril AdvReac Severe Swelling Verified 09/24/25 18:39 of Lip/Tongue/Throat Review of Systems Review of Systems ROS Unobtainable: All systems reviewed & are unremarkable except as noted in HPI and below Patient History Medical History Medicare annual wellness visit, subsequent Carotid stenosis Well adult exam Elevated hemidiaphragm COVID-19 virus infection (04/29/22) HTN (hypertension) History of Mohs micrographic surgery for skin cancer SCC (squamous cell carcinoma) (10/15/22) Cervical spondylosis Renal insufficiency Erectile dysfunction Fractures Chronic back pain Mumps Measles Chicken pox Mixed hyperlipidemia (10/02/15) History of deep venous thrombosis (10/02/15) Heterozygous factor V Leiden mutation (10/02/15) Essential hypertension (10/02/15) Cephalgia Herpes zoster ophthalmicus of left eye Surgical History History of bunionectomy of left great toe History of bunionectomy of right great toe Hx of colonoscopy History of surgery (~01/1999) Anesthesia No pertinent past surgical history Family History Father History of heart disease Mother Cancer Social History household members: spouse Smoking Status: Never smoker Tobacco: How many years used: 10 quit status: has quit before alcohol intake: current substance use type: does not use alcohol intake frequency: a few times a week Exam Narrative Exam Narrative: General: Patient appears to be in no acute distress, acting appropriately Head: normocephalic, atraumatic, HEENT: Pupils equal round reactive, eyes tracking well, neck supple, no JVD Heart: regular rate and rhythm, no murmurs, rubs, or gallops heard Lungs: clear to auscultation, no adventitious sounds Abdomen: soft , nontender, nondistended, positive bowel sounds Neurological: no focal neurological signs, moving all extremities well, alert and oriented x3, Psych: good judgment ,good insight, mood is normal. ext: right nj area has 4-5 cm laceration oozing some blood Initial Vital Signs Initial Vital Signs: Vital Signs Temperature 97.3 F L 09/24/25 18:38 Pulse Rate 80 09/24/25 18:38 Respiratory Rate 16 09/24/25 18:38 Blood Pressure 142/85 H 09/24/25 18:38 Pulse Oximetry 96 09/24/25 18:38 Oxygen Delivery Method Room Air 09/24/25 18:38 Procedures Laceration Repair Laceration 1: Time of procedure: 19:45 Site: lower extremity Side (If applicable): right Size (cm): 5 Description: linear Depth: simple, single layer Local Anesthetic: lidocaine 2% Amount of anesthesia used (mL): 4 Pre-repair: wound explored and irrigated extensively Skin layer closed with: nylon Skin layer suture size: 5-0 Number of sutures: 5 Technique: simple, interrupted Course Orders Ordered: Discontinued Medications Bacitracin (Bacitracin Oint 0.9 Gm Pckt) 1 applic TOP NOW ONE Stop: 09/24/25 19:22 Last Admin: 09/24/25 19:42 Dose: 1 applic Documented By: LORELEI Diphtheria/Tetanus/Acell Pertussis (Tet,Diph,Pertuss(Acell),Vac/Pf 0.5 Ml Syringe) 0.5 ml IM .ONCE ONE Stop: 09/24/25 19:10 Last Admin: 09/24/25 19:17 Dose: 0.5 ml Documented By: LORELEI Vital Signs Vital signs: Vital Signs - 8 hr 09/24/25 18:38 09/24/25 18:49 09/24/25 19:43 Temperature 97.3 F L 97.5 F L Pulse Rate 80 90 Pulse Rate [Right Dorsalis Pedis] 90 Respiratory Rate 16 18 Blood Pressure 142/85 H 131/83 Pulse Oximetry 96 95 Oxygen Delivery Method Room Air Room Air MDM - Wound/Laceration MDM Narrative Medical decision making narrative: 70-year-old male with laceration over the right nj area ending up needing 5 sutures simple interrupted with nylon nonabsorbable. Patient will follow up in 1 week for suture removal. Patient tolerated procedure well with no complications. Follow up with any signs of infection. Wound instructions given below. Discharge Plan Departure Patient Disposition: Home Clinical Impression: Laceration of lower extremity Qualifiers: Encounter type: initial encounter Laterality: right Qualified Code(s): S81.811A - Laceration without foreign body, right lower leg, initial encounter Instructions: DI for Laceration Repair -- Simple Activity Restrictions/Additional Instructions: Keep area dry for the next 24 hours. Can go ahead and shower in cleanse with water and soap after the 24 hours. Follow up if any signs of infection such as redness warmth oozing. Follow up in approximately 1 week with PCP for sutures removal. Prescriptions: No Action tadalafil 20 mg tablet See Rx Instructions PO DAILY PRN (Reason: sexual activity) Qty: 30 3RF Patient Comments: several weeks ago Rx Instructions: 0.5-1 tab (10-20mg) orally daily PRN; metoprolol succinate 25 mg tablet extended release 24 hr 25 mg PO DAILY Qty: 90 3RF Rx Instructions: take at night Eliquis 5 mg tablet See Rx Instructions .ROUTE .COMPLEX Qty: 180 3RF Dose Instruction: TAKE 1 TABLET TWICE A DAY Rx Instructions: TAKE 1 TABLET TWICE A DAY atorvastatin 20 mg tablet See Rx Instructions .ROUTE .COMPLEX Qty: 90 3RF Dose Instruction: TAKE 1 TABLET AT BEDTIME Rx Instructions: TAKE 1 TABLET AT BEDTIME amlodipine 5 mg tablet 5 mg PO DAILY Qty: 90 3RF hydrochlorothiazide 25 mg tablet 25 mg PO DAILY Qty: 90 3RF aspirin 81 mg tablet,delayed release (DR/EC) 81 mg PO DAILY cetirizine [Zyrtec] PO Referrals: Adonis Boone DO [Primary Care Provider, Family Practice] Stand Alone Forms: Patient Portal/API
[2025-09-24 18:38] VITALS: BP 142/85; PULSE 80; RESP 16; TEMP 36.3; O2SAT 96; BMI 33.9
[2025-09-24 18:49] VITALS: PULSE 90
[2025-09-24] MEDS: TET,DIPH,PERTUSS(ACELL),VAC/PF 0.5 ML SYRINGE IM (19:17)
--- NOTE | 2025-09-24 19:25 | PC.NURSE ---
Pt's lower left leg cleaned with sterile water, bacitracin applied to area of sutures, non-stick gauze applied and lower leg wrapped in kerlix gauze.
[2025-09-24] MEDS: BACITRACIN OINT 0.9 GM PCKT 1 APPLIC TOP (19:42)
[2025-09-24 19:43] VITALS: BP 131/83; PULSE 90; RESP 18; TEMP 36.4; O2SAT 95
== END 2025-09-24 19:49 | disposition home or self-care (01) ==
PROVIDERS: Emergency Provider Family Medicine; PCP Family Medicine
DX: S81.811A Laceration without foreign body, right lower leg, initial encounter (principal); W26.0XXA Contact with knife, initial encounter; Z23 Encounter for immunization
CPT/HCPCS: 12002; 90471; 99283; 90715